=== PATIENT | male | born 1940 | race Asian ===

== ENCOUNTER 2024-11-23 13:07 | Emergency (ER) | payer MEDICAID, SELFPAY ==
[2024-11-23 13:32] VITALS: BP 129/78; PULSE 70; RESP 18; TEMP 36.9; O2SAT 97
--- NOTE | 2024-11-23 13:55 | XR_ITS ---
Examination: CT lumbar spine, without contrast. 2-D sagittal reconstructions. 2-D coronal reconstructions. 3-D reconstructions. Date and time of exam:November 23, 2024 1434 hours INDICATIONS: Onset lower back pain today CTDI: vol (mGy):18.8 DLP: (mGycm):638 Technique: Multiple 1.25 mm axial sections of the lumbar spine without intravenous contrast have been obtained. 2-D sagittal and coronal reconstructions have been obtained. 3-D reconstructions have been obtained. Low dose protocols were performed. One or more of the following dose reduction techniques were used; automated exposure control, adjustment of the mA and/or KV according to patient size, use of iterative reconstruction technique. Findings: Severe osteopenia Advanced disc narrowing L4-L5 Acute comminuted burst type fractures L4 vertebral body Fractures include the pedicles of this vertebral body making this an unstable fracture, axial image 116 Reduction in height 30% Minimal retropulsion of the posterior superior margin of this vertebral body 2 mm No spondylolisthesis Paraspinal soft tissue prominence at the L4 level IMPRESSION: Severe comminuted burst fracture L4 vertebral body Fractures involve the pedicles of this vertebral body bilaterally making this an unstable fracture
--- NOTE | 2024-11-23 13:56 | EDNOTE_ITS ---
ED General RME/HPI General Chief complaint: General Adult/Misc Complain Stated complaint: SENT BY PCP FOR MRI Time Seen by Provider: 11/23/24 13:37 Arrival date/time: 11/23/24 13:07 , Ambulatory, unaided, walking normal ambulatory with no assist, RME / HPI RME / HPI narrative: 84-year-old male patient with significant history of congestive heart failure, had a pacemaker, was sent to us by PCP asking for MRI of the lumbar spine. Apparently patient is very active, ambulatory, prior to the incident. Patient sustained [id number] fall about 3 weeks ago ago since then has been having severe low back pain. He is unable to ambulate due to weakness to bilateral lower extremity and pain. Patient was seen by PCP and was referred to us for MRI. Initially given oxycodone however patient took only 1 tablet due to adverse effect. Patient denies any chest pain abdominal pain urinary incontinence bladder incontinence bowel incontinence, saddle anesthesia. Denies any fever denies any other complaints. Related Data Allergies Allergy/AdvReac Type Severity Reaction Status Date / Time No Known Drug Allergies Allergy Verified 11/23/24 13:11 Review of Systems Review of Systems Narrative Review of Systems: Review of system reviewed and within normal limits except mentioned in HPI ED Exam Narrative Physical exam: VITAL SIGNS: Reviewed. GENERAL APPEARANCE: Alert and interactive, follows commands, no acute distress, HEAD AND FACE: Non-traumatic. ENT: PERRL, pink conjunctivitis, eyelid no trauma, Mucous membrane moist. NECK: Supple, nontender, no nuchal rigidity. CHEST:+ Pacemaker, no tenderness, no crepitus, no paradoxical movement, no retractions. LUNGS: Clear, well ventilated, symmetric, no rales, no wheezing, no ronchi, no stridor, good breath sounds bilaterally. HEART: Regular rate, regular rhythm, no murmur, no gallops. ABDOMEN: Soft, positive bowel sounds, nondistended, no guarding, nontender, no rebound, no masses, RECTAL: Deferred. GENITAL: Deferred. NEUROLOGICAL: Gross motor function intact sensory function intact, however I notice slight weakness 4 out of 5 bilateral lower extremities, MUSCULOSKELETAL: low back tenderness, full range of motion. EXTREMITIES: Nontender, full range of motion. SKIN: Color pink, dry, no rash, no lacerations, no abrasions, no contusions. LYMPHATICS: Deferred. Course Quality Measures none Orders Category Date Time Status EKG (ED ONLY) *Do not use* NOW Care 11/23/24 15:34 Completed Referral - Bar Host/Hostess Stat Cons 11/23/24 16:[address] lumbar spine wo con Stat Exams 11/23/24 13:55 Completed EKG (ED Only) Stat Exams 11/23/24 15:34 Draft XR chest 1V Stat Exams 11/23/24 15:33 Completed CBC [CBC] Stat Lab 11/23/24 16:00 Completed CMP [Comprehensive Metabolic Panel] Stat Lab 11/23/24 16:00 Completed PTT [Partial Thromboplastin Time] Stat Lab 11/23/24 16:00 Completed Vital Signs Vital signs: Vital Signs Temperature 98.5 F 11/23/24 13:32 Pulse Rate 70 11/23/24 13:32 Respiratory Rate 18 11/23/24 13:32 Blood Pressure 129/78 11/23/24 13:32 Pulse Oximetry (%) 97 11/23/24 13:32 Oxygen Delivery Method Room Air 11/23/24 13:32 MDM Patient data External records reviewed:: None Clinical information provided by:: patient and family Social determinants that could affect healthcare access:: none Patient has the following chronic illnesses:: Congestive heart failure, hypertension, pacemaker How is presenting disease/condition affected by chronic disease/condition?: u neffected by Evaluation data The following diagnostics were reviewed and interpreted by me:: lab results, radiology exam(s) and EKG tracing(s) Lab and/or radiology exams considered but not ordered:: None Interpretation Summary: EKG showed paced rhythm, ventricular rate of 67 bpm, no ST segment elevation or depression noted. The rest of the lab see MDM Medications Medications considered but not ordered:: None Medication administrations:: None Consultations Consultation(s) initiated? (list below): No Diagnosis Differential Diagnosis ED Complaint MDM: Burst fracture L4, severe back pain, status post fall Most likely diagnosis given after review of the tests above:: Burst fracture L4, unstable Admission Indicated Admission indicated?: indicated Explain why admission is indicated or not indicated:: Transferred to [facility] Admission Request Was there a request for admission?: No Disposition Plan Disposition Plan: Transfer Medical Decision Making MDM Narrative MDM Narrative: 84-year-old male patient with significant history of congestive heart failure, had a pacemaker, was sent to us by PCP asking for MRI of the lumbar spine. Apparently patient is very active, ambulatory, prior to the incident. Patient sustained [id number] fall about 3 weeks ago ago since then has been having severe low back pain. He is unable to ambulate due to weakness to bilateral lower extremity and pain. Patient was seen by PCP and was referred to us for MRI. Initially given oxycodone however patient took only 1 tablet due to adverse effect. Patient denies any chest pain abdominal pain urinary incontinence bladder incontinence bowel incontinence, saddle anesthesia. Denies any fever denies any other complaints. CT scan of the lumbar spine showed Severe osteopenia Advanced disc narrowing L4-L5 Acute comminuted burst type fractures L4 vertebral body Fractures include the pedicles of this vertebral body making this an unstable fracture, axial image 116 Reduction in height 30% Minimal retropulsion of the posterior superior margin of this vertebral body 2 mm No spondylolisthesis Paraspinal soft tissue prominence at the L4 level IMPRESSION: Severe comminuted burst fracture L4 vertebral body Fractures involve the pedicles of this vertebral body bilaterally making this an unstable fracture Patient is to be transferred for higher level of care. There is spine/neurosurgeon available. I was able to spoke with neurosurgeon from [facility], who accepted the transfer. Differential Diagnosis Differential Diagnosis: Burst fracture L4, severe back pain, status post fall Lab Data 11/23/24 16:00 11/23/24 16:00 Labs: Lab Results 11/23/24 Range/Units 16:00 WBC 6.2 (3.8-10.6) Thou/mm3 RBC 3.54 L (4.50-5.90) Miln/mm3 Hgb 11.3 L (13.5-16.0) g/dL Hct 33.5 L (41.0-53.0) % MCV 95 (80-100) fL MCH 31.9 (25.0-35.0) pg MCHC 33.7 (31.0-37.0) g/dl RDW Std Deviation 67.7 H (35.1-43.9) fL Plt Count 162 (140-440) Thou/mm3 Neut % (Auto) 62 (37-80) % Lymph % (Auto) 20 (10-50) % Sioux % (Auto) 11 (0-12) % Eos % (Auto) 6 (0-10) % Baso % (Auto) 1 (0-2.5) % Neut # (Auto) 3.9 (1.8-7.7) Thou/mm3 Lymph # (Auto) 1.3 (1.0-4.8) Thou/mm3 Sioux # (Auto) 0.7 (0.0-0.8) Thou/mm3 Eos # (Auto) 0.3 (0.0-0.5) Thou/mm3 Baso # (Auto) 0.1 (0.0-0.2) Thou/mm3 Immature Gran # (Auto) 0.02 H (0.00-0.00) Thou/mm3 Absolute Nucleated RBC 0.00 (0.00-0.00) Thou/mm3 Immature Gran % 0 (0-0) % Nucleated RBC % 0 (0) /100 WBC APTT 36.8 H (22.0-36.0) Seconds Sodium 136 (136-145) mMol/L Potassium 3.7 (3.4-5.1) mMol/L Chloride 95 L (98-107) mMol/L Carbon Dioxide 31.9 H (20.0-31.0) mMol/L Anion Gap 9 (7-16) BUN 50 H (9-23) mg/dL Creatinine 2.1 H (0.6-1.3) mg/dL Estim Creat Clear Calc 24.4 L (>60) mL/min eGFR 30 L (60 - ) See Note BUN/Creatinine Ratio 24 H (12-20) Ratio Glucose 123 H (74-106) mg/dL Calculated Osmolality 286 (275-295) Calcium 9.5 (8.3-10.6) mg/dL Corrected Calcium 9.7 (8.5-10.1) mg/dL Total Bilirubin 0.8 (0.3-1.2) mg/dL AST 13 (0-34) U/L ALT < 7 L (10-49) U/L Alkaline Phosphatase 165 H (46-116) U/L Total Protein 7.4 (5.7-8.2) gm/dL Albumin 3.7 (3.4-4.8) gm/dL Globulin 3.7 H (2.3-3.5) gm/dL Albumin/Globulin Ratio 1.0 L (1.2-2.2) Discharge Plan Plan Patient Disposition: Xfer Acute Care Fac Facility Pt Being Transferred to: [facility] Prescriptions/Referrals Referrals: Enoch Leigh MD [Primary Care Provider] - In 1 week Problem List Clinical Impression: Closed L4 vertebral fracture, Fall Patient/Caregiver Discharge Instructions Print Language: Kyrgyz Stand Alone Forms: [facility] Award Info., Patient Portal Info Letter
--- NOTE | 2024-11-23 15:33 | XR_ITS ---
Examination: AP chest single view Technique one AP portable upright chest single view Exam date and time: November 23, 2024 1540 hours INDICATIONS: Chest pain today. FINDINGS: Abnormal interstitial disease throughout the lungs Mild prominence left ventricle Partial visualization ventricular cardiac lead Moderate vascular congestion IMPRESSION: Abnormal interstitial disease throughout the lungs, differential would include pneumonia, pulmonary fibrosis, clinical correlation advised Moderate vascular congestion
--- NOTE | 2024-11-23 15:34 | EKG_ITS ---
[facility] Test Date: 2024-11-23 Pat Name: TAYA CARRINGTON Department: Room: - Gender: Male Claims Adjudicator: : 1940 Requested By: Enio Galvez Order Number: [id number] Reading MD: Enio Galvez Measurements Intervals Wirtz Rate: 67 P: 131 RI: 103 QRS: 240 QRSD: 64 T: 92 QT: 249 QTc: 264 Interpretive Statements ELECTRONIC ATRIAL PACEMAKER RIGHT AXIS DEVIATION [QRS AXIS > 100] LOW QRS VOLTAGE [QRS DEFLECTION < 0.5/1.0 mV IN LIMB/CHEST LEADS] ANTERIOR MYOCARDIAL INFARCTION , POSSIBLY ACUTE [40+ ms Q WAVE AND/OR ST/T ABNORMALITY IN V3/V4] MARKED ST ELEVATION, CONSIDER LATERAL INJURY [MARKED ST ELEVATION W/O NORMALLY INFLECTED T-WAVE IN I/aVL/V5/V6] MARKED ST ELEVATION, CONSIDER INFERIOR INJURY [MARKED ST ELEVATION W/O NORMALLY INFLECTED T-WAVE IN II/aVF] TYPE 3 BRUGADA PATTERN (NON-DIAGNOSTIC) [COVED/SADDLEBACK ST ELEVATION > 0.1mV IN 2 OF V1-3] ACUTE ND No previous ECG available for comparison /store/S0/[id number]/ecg/[id number].pdf
--- NOTE | 2024-11-23 16:28 | PC.CC ---
Addendum entered by Christiano Simpson RN 11/23/24 19:35: 1925 sent paperwork to [facility] through [employer]. Called [facility], spoke to Gian and set up the transport. The fiber picker time is 2100. Addendum entered by Christiano Simpson RN 11/23/24 19:27: 1920 transfer packet is complete with CD inside including all signatures. Transfer packet given to charge nurse and number to call for report is on tracker. Addendum entered by Christiano Simpson RN 11/23/24 18:44: 1840 spoke to Tamara at [facility]. She stated pt is accepted for ED to ED transfer by Dr. Ornelas [facility] Trauma surgeon. Call report at [phone]. Addendum entered by Christiano Simpson RN 11/23/24 18:39: 1829 received call from Tamara at [facility] that she has her neurosurgery PA on the the line for peer to peer with Enio. Conference call connected. Addendum entered by Christiano Simpson RN 11/23/24 17:37: 1733 called [facility], spoke to Tamara and initiated the transfer. Tamara wants to speak to [facility]. Call transferred. Addendum entered by Christiano Simpson RN 11/23/24 17:25: 1724 images pushed over to [facility] via synapse. Original Note: 1720 clinicals sent to [facility]. due to working on inpatient transfer, unable to work right away. 1628 received call from [facility] that pt needs to be transferred for severe comminuted burst fracture L4 needs neuro-surgical or supine surgery services.
[2024-11-23 16:29] LABS: Basophils # (Auto) 0.1 Thou/mm3 (0.0-0.2); Basophils % (Auto) 1 % (0-2.5); Eosinophils # (Auto) 0.3 Thou/mm3 (0.0-0.5); Eosinophils % (Auto) 6 % (0-10); Hematocrit 33.5 % (41.0-53.0); Hemoglobin 11.3 g/dL (13.5-16.0); Immature Granulocytes % (Auto) 0 % (0-0); Immature Granulocytes Auto 0.02 Thou/mm3 (0.00-0.00); Lymphocytes # (Auto) 1.3 Thou/mm3 (1.0-4.8); Lymphocytes % (Auto) 20 % (10-50); Mean Corpuscular HGB Conc 33.7 g/dl (31.0-37.0); Mean Corpuscular Hemoglobin 31.9 pg (25.0-35.0); Mean Corpuscular Volume 95 fL (80-100); Monocytes # (Auto) 0.7 Thou/mm3 (0.0-0.8); Monocytes % (Auto) 11 % (0-12); Neutrophils # (Auto) 3.9 Thou/mm3 (1.8-7.7); Neutrophils % (Auto) 62 % (37-80); Nucleated Red Blood Cell % 0 /100 WBC (0); Platelet Count 162 Thou/mm3 (140-440); RDW Standard Deviation 67.7 fL (35.1-43.9); Red Blood Count 3.54 Miln/mm3 (4.50-5.90); White Blood Count 6.2 Thou/mm3 (3.8-10.6)
[2024-11-23 16:36] LABS: Partial Thromboplastin Time 36.8 Seconds (22.0-36.0)
[2024-11-23 16:51] LABS: Alanine Aminotransferase < 7 U/L (10-49); Albumin, Serum 3.7 gm/dL (3.4-4.8); Alkaline Phosphatase 165 U/L (46-116); Anion Gap 9 (7-16); Aspartate Amino Transferase 13 U/L (0-34); BUN/Creatinine Ratio 24 Ratio (12-20); Bilirubin,Total 0.8 mg/dL (0.3-1.2); Blood Urea Nitrogen 50 mg/dL (9-23); Calcium 9.5 mg/dL (8.3-10.6); Calcium (Corrected) 9.7 mg/dL (8.5-10.1); Carbon Dioxide 31.9 mMol/L (20.0-31.0); Chloride 95 mMol/L (98-107); Creatinine (Component) 2.1 mg/dL (0.6-1.3); Estimated Creatinine Clearance 24.4 mL/min (>60); Globulin 3.7 gm/dL (2.3-3.5); Glucose 123 mg/dL (74-106); Osmolality,Calculated 286 (275-295); Potassium 3.7 mMol/L (3.4-5.1); Sodium 136 mMol/L (136-145); Total Protein 7.4 gm/dL (5.7-8.2); eGFR 30 See Note
[2024-11-23 17:52] VITALS: BP 124/80; PULSE 67; RESP 18; TEMP 36.8; O2SAT 96
[2024-11-23 19:54] VITALS: BP 141/84; PULSE 73; RESP 18; TEMP 36.4; O2SAT 100
--- NOTE | 2024-11-23 20:31 | PC.NURSE ---
REPORT CALLED TO SONU LEON AT [facility] AT THIS TIME.
== END 2024-11-23 20:39 | disposition short-term general hospital (02) ==
PROVIDERS: Nurse Practitioner Family; Emergency Provider Emergency Medicine; PCP Family Medicine
DX: S32.041A Stable burst fracture of fourth lumbar vertebra, initial encounter for closed fracture (principal); W19.XXXA Unspecified fall, initial encounter; R07.9 Chest pain, unspecified; R94.31 Abnormal electrocardiogram [ECG] [EKG]; I11.0 Hypertensive heart disease with heart failure; I50.9 Heart failure, unspecified; Z95.0 Presence of cardiac pacemaker; Z75.1 Person awaiting admission to adequate facility elsewhere
CPT/HCPCS: 36415; 71045; 72131; 80053; 85025; 85730; 93005; 99285

== ENCOUNTER 2024-12-22 07:56 | Inpatient (IN) | payer MEDICAID, SELFPAY ==
[2024-12-22] VITALS (8 sets, daily range): BP systolic 95–121; BP diastolic 45–78; PULSE 61–82; RESP 16–97; TEMP 36.4–36.7; O2SAT 92–96; BMI 23.6
--- NOTE | 2024-12-22 08:15 | PD.EDADULT ---
ED General RME/HPI General Chief complaint: Neuro Symptoms/Deficit Stated complaint: FACIAL DROOP Time Seen by Provider: 12/22/24 08:19 Arrival date/time: 12/22/24 07:56 RME / HPI RME / HPI narrative: 84 year old male with history of CHF, atrial fibrillation, s/p pacemaker, hypertension, diabetes, hyperlipidemia, hypothyroidism, recent stable L4 burst fracture with surgery performed at [facility] on 12/05/2024, presents to the ED BIBA from [facility] for evaluation of facial droop today. Per medics, OR staff reported patient was just admitted to their facility 2 weeks ago and noted to have a facial droop then. However this morning was worse which concerned them. Prehospital BS 162, blood pressure 125/75, HR 85. While in the ED patient has no complaints and states nothing is going on I'm fine . Denies fever, chills, sweating. Denies chest pain, cough, shortness of breath. Denies nausea, vomiting, diarrhea, constipation. Denies dysuria, urinary frequency and urgency. 1110: I spoke with the patient's son at the bedside. He reported receiving a call from the [facility] early this morning, notifying him that the patient was shuffling in bed and found sitting upright on the floor next to the bed. The fall was unwitnessed and unknown if there was head injury. The son explained that the patient had been transferred from here to [facility] on 11/23/2024 due to a burst L4 vertebral fracture. Following back surgery on 11/29/2024, the patient began complaining of severe shortness of breath. The nursing staff placed him on oxygen, but there was no improvement, and the patient subsequently collapsed. He went into cardiac arrest, and CPR was performed. Additionally, the son mentioned that since the surgery, the patient has developed a mild left sided facial droop, which he did not have prior to the surgery . Denies stroke work-up during his time at [facility]. Related Data Allergies Allergy/AdvReac Type Severity Reaction Status Date / Time No Known Drug Allergies Allergy Verified 12/22/24 08:19 Review of Systems Review of Systems Narrative Review of Systems: GEN: No fever, no chills, no weight loss EYES: No discharge, no visual changes, no pain HEENT: No ear pain, no congestion, no sore throat PULM: No shortness of breath, no cough, no congestion CV: No chest pain, no dyspnea on exertion, no palpitations GI: No nausea, no vomiting, no diarrhea, no pain, no constipation : No frequency, no urgency, no dysuria MUSC/SKEL: No joint pain, no back pain SKIN: No rash PSYCH: No hallucinations, no depression HEME/LYMPH: No easy bleeding or bruising tendencies NEURO: No weakness, no headache, +left facial droop Past Medical History Past Medical History NEUROLOGIC: Positive Cerebrovascular Accident CARDIAC: Positive Myocardial Infarction, Atrial Fibrillation, Heart Murmur, Congestive Heart Failure and Hypertension RESPIRATORY: Negative Chronic Obstructive Pulmonary Disease (COPD) GENITOURINARY: Positive Renal Disease ENDOCRINE: Positive Diabetes Mellitus Type 2; Negative Diabetes Mellitus Type 1 OTHER HISTORY: Positive Falls Surgical History SURGICAL: Positive Cardiac Surgery and Pacemaker Social History SMOKING STATUS: Unknown if ever smoked ED Exam Narrative Physical exam: GENERAL APPEARANCE: alert and oriented x 4, well-developed, well-nourished, no acute distress HEENT: Normocephalic, atraumatic; pupils equal, round, reactive to light; EOMI; mucous membranes pink, moist; oropharynx clear NECK: Supple LUNGS: CTABL; no wheezes, no rales, no rhonchi HEART: Regular rate, regular rhythm; normal S1, S2; no murmurs ABDOMEN: non distended; normal BS; soft, no tenderness, no guarding, no rebound; no masses, no organomegaly, no hernia BACK: no CVA tenderness EXTREMITIES: atraumatic; no edema NEUROLOGIC: awake; alert and oriented x4; left facial droop, strength 5/5 bilateral upper extremities; no focal sensory or motor deficits PSYCHIATRIC: appropriate mood and affect SKIN: warm, dry, normal color; no rashes Course Quality Measures none Orders Category Date Time 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 12/22/24 08:21 Active EKG (ED ONLY) *Do not use* NOW Care 12/22/24 08:[address] cervical spine wo con Stat Exams 12/22/24 08:[address] head/brain wo con Stat Exams 12/22/24 08:21 Completed EKG (ED Only) Stat Exams 12/22/24 08:21 Draft US abdomen limited Stat Exams 12/22/24 11:23 Completed XR chest 1V portable Stat Exams 12/22/24 10:42 Completed XR lumbar spine 2-3V Stat Exams 12/22/24 11:17 Completed B-Type Natriuretic Peptide Stat Lab 12/22/24 08:50 Completed CBC Stat Lab 12/22/24 08:50 Completed CMP [Comprehensive Metabolic Panel] Stat Lab 12/22/24 15:01 Completed Comprehensive Metabolic Panel Stat Lab 12/22/24 08:50 Completed Lipase Stat Lab 12/22/24 08:50 Completed Magnesium Stat Lab 12/22/24 08:50 Completed Partial Thromboplastin Time Stat Lab 12/22/24 08:50 Completed Prothrombin Time with INR Stat Lab 12/22/24 08:50 Completed Troponin I Stat Lab 12/22/24 08:50 Completed Troponin I Stat Lab 12/22/24 12:00 Completed UA, C/S IF [Urinalysis, C/S if Indicated] Stat Lab 12/22/24 15:33 Completed Sodium Chloride 0.9% 1000 ml [Ns] 1,000 ml Med 12/22/24 10:44 Discontinued IV 999 mls/hr Vital Signs Vital signs: Vital Signs Temperature 97.9 F 12/22/24 08:00 Pulse Rate 82 12/22/24 08:00 Respiratory Rate 18 12/22/24 08:00 Blood Pressure 117/72 12/22/24 08:00 Pulse Oximetry (%) 92 L 12/22/24 08:00 Oxygen Delivery Method Nasal Cannula 12/22/24 08:00 Oxygen Flow Rate 6 12/22/24 08:00 Discharge Plan Plan Patient Disposition: Admit Acute Care w/in Hospital Problem List Clinical Impression: Dehydration, Elevated troponin, Transaminitis, Facial droop MDM Patient Acuity High Acuity (complete MDM) Narrative: Lilliam Perez am scribing for and in the presence of Dr. Buck. Clinical Information Provided by: patient, EMS and family (Son adds to hpi) Medical Records reviewed [facility] (I reviewed ED visit on 11/23/2024 where he was transferred to [facility] ) and [facility] (I reviewed PMHX and medication list from [facility] ) Meds/Rx considered, not ordered None Labs/Rad/Tests considered, not ordered None Chronic Illness/Social Conditions which may negatively complicate care or outcome(s)-explain: None or not applicable EKG EKG Interpretation(s): EKG @ 08:45 am. Interpreted by me shows ventricular paced, rate 73. Labs Labs: Interpreted by me Lab(s) Interpretation(s): H/H 9.5/29.2 Troponin 0.156 BNP > 3280 Imaging Imaging interpretation: Interpreted by me Imaging Interpretation(s): Ordering Physician: Evi Buck MD Date of Service: 12/22/24 Procedure(s): CT head/brain wo con Accession Number(s): [id number] cc: Tim Holloway MD; NO PRIMARY/FAMILY,PHYSICIAN; Evi Buck MD~ Examination: CT brain head without contrast. 2-D sagittal coronal reconstructions Exam date and time: December 22, 2024 0834 hours INDICATIONS: Onset right-sided facial droop today with fall CTDI: vol (mGy):52.3 DLP: (mGycm):1036 Technique: Multiple CT axial sections of the brain have been obtained, 5 mm slice thickness. Contrast has not been administered. 2-D sagittal, coronal reconstructions have been obtained Low dose protocols were performed. One or more of the following dose reduction techniques were used; automated exposure control, adjustment of the mA and/or KV according to patient size, use of iterative reconstruction technique. Findings: Mild ventricular enlargement. Intra-axial or extra-axial hemorrhage density is not seen. No mass effect or midline shift Basal cisterns are not remarkable. Fourth ventricle is midline. Cranial vault intact. Impression: Negative for acute hemorrhage, mass effect or midline shift Advise clinical correlation follow-up accordingly Dictated By:Tim Holloway MD Signed By:<Electronically signed by Tim Holloway MD in OV>12/22/24 0942 Ordering Physician: Evi Buck MD Date of Service: 12/22/24 Procedure(s): CT cervical spine wo con Accession Number(s): [id number] cc: Tim Holloway MD; NO PRIMARY/FAMILY,PHYSICIAN; Evi Buck MD~ Examination: CT cervical spine without contrast 2-D sagittal reconstructions 2-D coronal reconstructions 3-D reconstructions. Exam date and time:December 22, 2024 0834 hours INDICATIONS: Ground-level fall this morning with injury to the neck, neck pain CTDI:vol (mGy) 8.42 DLP: (mGycm) 183 Technique: Multiple 2 mm axial sections of the cervical spine have been obtained. The coronal and sagittal reconstructions have been obtained. 3-D reconstructions have been obtained. Low dose protocols were performed. One or more of the following dose reduction techniques were used; automated exposure control, adjustment of the mA and/or KV according to patient size, use of iterative reconstruction technique. Findings: Axial sections demonstrate intact base of the skull. C1 exhibit satisfactory relationship to the odontoid. No acute cervical vertebral body fracture seen. Alignment posterior spinous processes satisfactory. Impression: The images are degraded by patient motion No cervical fracture depicted Dictated By:Tim Holloway MD Signed By:<Electronically signed by Tim Holloway MD in OV>12/22/24 0937 Ordering Physician: Evi Buck MD Date of Service: 12/22/24 Procedure(s): XR chest 1V portable Accession Number(s): [id number] cc: Tim Holloway MD; NO PRIMARY/FAMILY,PHYSICIAN; Evi Buck MD~ Examination: AP chest single view Technique one AP portable upright chest single view Exam date and time: December 22, 2024 1115 hours Comparison November 23, 2024 INDICATIONS: Chest pain shortness of breath beginning 2 days ago. FINDINGS: Mild heart failure Mild enlargement cardiac contour with prominent vascular congestion and early septal edema Consider superimposed pneumonia left upper lobe Cardiac leads satisfactory position IMPRESSION: Mild heart failure Suspicious for early pneumonia left upper lobe Dictated By:Tim Holloway MD Signed By:<Electronically signed by Tim Holloway MD in OV>12/22/24 1138 Ordering Physician: Evi Buck MD Date of Service: 12/22/24 Procedure(s): US abdomen limited Accession Number(s): [id number] cc: Tim Holloway MD; NO PRIMARY/FAMILY,PHYSICIAN; Evi Buck MD~ Examination: Abdomen sonogram, Limited Date and time of exam: December 22, 2024 11:43 AM INDICATIONS: Elevated liver function tests on laboratory examination today Technique: Real-time velazquez scale transabdominal sonographic images of the upper abdomen obtained. Findings: 16 mm gallstone Gallbladder wall 0.37 cm with trace pericholecystic fluid Common bile duct 0.4 cm Pancreatic head 2.8 cm Liver 13.7 cm irregular contour fatty infiltration Mild ascites Normal hepatopedal portal venous flow Patent IVC IMPRESSION: Cholelithiasis Suspicious for acute cholecystitis Consider MRCP follow-up Dictated By: Tim Holloway MD Signed By: <Electronically signed by Tim Holloway MD in OV> 12/22/24 1315 Ordering Physician: Evi Buck MD Date of Service: 12/22/24 Procedure(s): XR lumbar spine 2-3V Accession Number(s): [id number] cc: Tim Holloway MD; NO PRIMARY/FAMILY,PHYSICIAN; Evi Buck MD~ Examination: Lumbar spine 3 views Technique one AP lateral coned lateral lower lumbar spine 3 views Exam date and time: December 22, 2024 1218 hours INDICATIONS: Patient fell 3 months ago with injury to lower back, lower back pain. FINDINGS: Severe osteopenia Lumbar dextroscoliosis 12 degrees Chronic osteoporotic compression L4 with kyphoplasty No acute lumbar fracture Moderate degenerative disc disease L4-L5 IMPRESSION: Severe osteopenia Chronic osteoporotic compression L4 with kyphoplasty No acute lumbar fracture Moderate degenerative disc disease L4-L5 Dictated By: Tim Holloway MD Signed By: <Electronically signed by Tim Holloway MD in OV> 12/22/24 1339 Medication Administration(s) Medication Administration History Acetaminophen (Acetaminophen 325 Mg Tablet) 650 mg PO Q6H PRN PRN Reason: Fever >101.5 Stop: 01/21/25 14:22 Heparin Sodium (Porcine) (Heparin Sod Inj 5000 Unit/Ml Vial) 5,000 unit SC Q8HR HAYES Stop: 01/05/25 21:59 Ondansetron HCl (Ondansetron Inj 2 Mg/Ml Inj 2 Ml) 4 mg IV Q6H PRN; Protocol PRN Reason: NAUSEA OR VOMITING Stop: 01/21/25 14:22 Sennosides (Senna Tablet) 1 tab PO QDAY HAYES; Protocol Stop: 01/22/25 08:59 Discontinued Medications Sodium Chloride (Ns) 1,000 mls @ 999 mls/hr IV .Q1H1M ONE Stop: 12/22/24 11:44 Last Infusion: 12/22/24 15:47 Dose: Infused Documented By: Admin: 12/22/24 12:51 Dose: 999 mls/hr Documented By: RAFA Sodium Chloride (Ns) 250 mls @ 999 mls/hr IV .Q16M ONE Stop: 12/22/24 14:38 See above Consultations/Discussions re: Management Consult #1: Date/time: 12/22/24 12:10 pm Physician, specialty, service, details: I spoke with resident Dr. Foley working with Dr. Suarez regarding admission. Discussed patients PMHx, HPI, ED course, exam findings, labs, and radiology results. States she will discuss case with her attending. Diagnosis Diagnoses ruled out: Dehydration Elevated troponin Right facial droop Transaminitis
--- NOTE | 2024-12-22 08:21 | EKG_ITS ---
[facility] Test Date: 2024-12-22 Pat Name: TAYA CARRINGTON Department: Room: - Gender: Male Capacity Planner: : [id number] Requested By: Evi Graf Order Number: [id number] Reading MD: Evi Graf Measurements Intervals [place] Rate: 73 P: VA: QRS: 270 QRSD: 207 T: 91 QT: 540 QTc: 596 Interpretive Statements ELECTRONIC VENTRICULAR PACEMAKER PROLONGED QT INTERVAL CRITICAL TEST RESULT Compared to ECG 11/23/2024 15:50:10 Prolonged QT interval now present Atrial-paced complex(es) or rhythm no longer present Right-axis deviation no longer present Myocardial infarct finding no longer present ST (T wave) deviation no longer present /store/S0/[id number]/ecg/[id number].pdf
--- NOTE | 2024-12-22 08:21 | XR_ITS ---
Examination: CT brain head without contrast. 2-D sagittal coronal reconstructions Exam date and time: December 22, 2024 0834 hours INDICATIONS: Onset right-sided facial droop today with fall CTDI: vol (mGy):52.3 DLP: (mGycm):1036 Technique: Multiple CT axial sections of the brain have been obtained, 5 mm slice thickness. Contrast has not been administered. 2-D sagittal, coronal reconstructions have been obtained Low dose protocols were performed. One or more of the following dose reduction techniques were used; automated exposure control, adjustment of the mA and/or KV according to patient size, use of iterative reconstruction technique. Findings: Mild ventricular enlargement. Intra-axial or extra-axial hemorrhage density is not seen. No mass effect or midline shift Basal cisterns are not remarkable. Fourth ventricle is midline. Cranial vault intact. Impression: Negative for acute hemorrhage, mass effect or midline shift Advise clinical correlation follow-up accordingly
--- NOTE | 2024-12-22 08:22 | XR_ITS ---
Examination: CT cervical spine without contrast 2-D sagittal reconstructions 2-D coronal reconstructions 3-D reconstructions. Exam date and time:December 22, 2024 0834 hours INDICATIONS: Ground-level fall this morning with injury to the neck, neck pain CTDI:vol (mGy) 8.42 DLP: (mGycm) 183 Technique: Multiple 2 mm axial sections of the cervical spine have been obtained. The coronal and sagittal reconstructions have been obtained. 3-D reconstructions have been obtained. Low dose protocols were performed. One or more of the following dose reduction techniques were used; automated exposure control, adjustment of the mA and/or KV according to patient size, use of iterative reconstruction technique. Findings: Axial sections demonstrate intact base of the skull. C1 exhibit satisfactory relationship to the odontoid. No acute cervical vertebral body fracture seen. Alignment posterior spinous processes satisfactory. Impression: The images are degraded by patient motion No cervical fracture depicted
[2024-12-22 09:03] LABS: Basophils % (Auto) 0 % (0-2.5); Eosinophils % (Auto) 0 % (0-10); Hematocrit 29.2 % (41.0-53.0); Hemoglobin 9.5 g/dL (13.5-16.0); Immature Granulocytes % (Auto) 1 % (0-0); Lymphocytes # (Auto) 0.9 Thou/mm3 (1.0-4.8); Lymphocytes % (Auto) 12 % (10-50); Mean Corpuscular HGB Conc 32.5 g/dl (31.0-37.0); Mean Corpuscular Hemoglobin 30.5 pg (25.0-35.0); Mean Corpuscular Volume 94 fL (80-100); Monocytes # (Auto) 1.2 Thou/mm3 (0.0-0.8); Monocytes % (Auto) 15 % (0-12); Neutrophils # (Auto) 5.5 Thou/mm3 (1.8-7.7); Neutrophils % (Auto) 71 % (37-80); Nucleated Red Blood Cell # 0.02 Thou/mm3 (0.00-0.00); Nucleated Red Blood Cell % 0 /100 WBC (0); Platelet Count 246 Thou/mm3 (140-440); Red Blood Count 3.11 Miln/mm3 (4.50-5.90); White Blood Count 7.7 Thou/mm3 (3.8-10.6)
[2024-12-22 09:20] LABS: INR 1.6 (0.9-1.3); Partial Thromboplastin Time 37.3 Seconds (22.0-36.0); Prothrombin Time 16.9 Seconds (9.0-12.2)
[2024-12-22 09:43] LABS: B-Type Natriuretic Peptide > 3280 pg/mL (0-100)
[2024-12-22 09:44] LABS: Alanine Aminotransferase 128 U/L (10-49); Albumin, Serum 3.7 gm/dL (3.4-4.8); Alkaline Phosphatase 228 U/L (46-116); Anion Gap 10 (7-16); Aspartate Amino Transferase 76 U/L (0-34); BUN/Creatinine Ratio 38 Ratio (12-20); Bilirubin,Total 1.8 mg/dL (0.3-1.2); Calcium 9.1 mg/dL (8.3-10.6); Calcium (Corrected) 9.3 mg/dL (8.5-10.1); Carbon Dioxide 31.4 mMol/L (20.0-31.0); Chloride 99 mMol/L (98-107); Creatinine (Component) 2.7 mg/dL (0.6-1.3); Globulin 3.7 gm/dL (2.3-3.5); Glucose 137 mg/dL (74-106); Lipase 50 U/L (12-53); Magnesium 2.1 mg/dL (1.6-2.6); Osmolality,Calculated 313 (275-295); Potassium 4.4 mMol/L (3.4-5.1); Sodium 140 mMol/L (136-145); Total Protein 7.4 gm/dL (5.7-8.2); eGFR 22 See Note
[2024-12-22 09:47] LABS: Blood Urea Nitrogen 103 mg/dL (9-23); Troponin I 0.156 ng/mL (0.0-0.045)
--- NOTE | 2024-12-22 10:42 | XR_ITS ---
Examination: AP chest single view Technique one AP portable upright chest single view Exam date and time: December 22, 2024 1115 hours Comparison November 23, 2024 INDICATIONS: Chest pain shortness of breath beginning 2 days ago. FINDINGS: Mild heart failure Mild enlargement cardiac contour with prominent vascular congestion and early septal edema Consider superimposed pneumonia left upper lobe Cardiac leads satisfactory position IMPRESSION: Mild heart failure Suspicious for early pneumonia left upper lobe
--- NOTE | 2024-12-22 11:17 | XR_ITS ---
Examination: Lumbar spine 3 views Technique one AP lateral coned lateral lower lumbar spine 3 views Exam date and time: December 22, 2024 1218 hours INDICATIONS: Patient fell 3 months ago with injury to lower back, lower back pain. FINDINGS: Severe osteopenia Lumbar dextroscoliosis 12 degrees Chronic osteoporotic compression L4 with kyphoplasty No acute lumbar fracture Moderate degenerative disc disease L4-L5 IMPRESSION: Severe osteopenia Chronic osteoporotic compression L4 with kyphoplasty No acute lumbar fracture Moderate degenerative disc disease L4-L5
--- NOTE | 2024-12-22 11:23 | XR_ITS ---
Examination: Abdomen sonogram, Limited Date and time of exam: December 22, 2024 11:43 AM INDICATIONS: Elevated liver function tests on laboratory examination today Technique: Real-time velazquez scale transabdominal sonographic images of the upper abdomen obtained. Findings: 16 mm gallstone Gallbladder wall 0.37 cm with trace pericholecystic fluid Common bile duct 0.4 cm Pancreatic head 2.8 cm Liver 13.7 cm irregular contour fatty infiltration Mild ascites Normal hepatopedal portal venous flow Patent IVC IMPRESSION: Cholelithiasis Suspicious for acute cholecystitis Consider MRCP follow-up
[2024-12-22] MEDS: SODIUM CHLORIDE 0.9% 1000 ML 1,000 ML 999 ML IV (12:51)
[2024-12-22 13:01] LABS: Troponin I 0.157 ng/mL (0.0-0.045)
--- NOTE | 2024-12-22 13:14 | PC.NURSE ---
RN updated Ya director of medical staff services at [facility] updated on plan of admission for this patient.
--- NOTE | 2024-12-22 15:24 | ESHP_ITS ---
<Statement entered by Dedra Suarez MD - 12/27/24 09:29> I reviewed above note and agree with findings and plans. I have also personally examined the patient with medicine team and went over assessment and plan with medical team including intern retail and resident physician. <Statement entered by Carson Sifuentes MD - 12/24/24 10:43> Patient coming in with some posterior left-sided facial droopiness, per son has been persistent for about 1 month. Patient being admitted for acute renal failure with noted elevation in creatinine and BUN. Will start fluid resuscitation. Case discussed with team. Carson Sifuentes MD PGY3 Documentation for date of: 12/22/24 HPI History of Present Illness History of present illness: Mr. Conley is An 84-year-old male with a past medical history significant for congestive heart failure (CHF), atrial fibrillation (A-fib), hypertension, type 2 diabetes mellitus, hypothyroidism, and a recent L4 vertebral fracture presented to the Emergency Department (ED) from a rehabilitation center after being found on the floor. According to the patient?s son, who is at the bedside, the nursing facility contacted him to report that the patient was being transferred to the hospital due to a noticeable facial droop. The patient is alert and oriented but is unable to recall the events leading up to being found on the floor. He denies sustaining a fall or injury and believes he may have been attempting to get out of bed, although he does not remember falling. He reports the possibility that he may have simply sat down. The patient denies any dizziness, visual disturbances, slurred speech, focal weakness, or facial droop. Pt's son states he wears dentures and has not been wearing them.He also denies chest pain, palpitations, pressure, or syncopal episodes. He reports no dysphagia, though he has experienced a decreased appetite, which he attributes to dissatisfaction with the food being served at the rehabilitation facility. The patient was recently discharged from [facility] to the rehab facility following surgery for an L4 fracture. Immediately after the surgery Pt had asytole and was resucicated, son states since then he has noticed his dad has become more withdrawn. Pt states he has been participating in physical therapy at the rehab center. He reports making good progress with ambulation and overall strength. He denies any abdominal pain, changes in bowel habits, diarrhea, constipation, hematochezia, or melena. ED course: In the ED blood pressure is 117/72, heart rate 82 patient saturating on room air Lab findings include hemoglobin 9.5, hematocrit 29.2, BUN 103, creatinine 2.7, GFR 22, glucose 137, calculated osmolality 313, total bilirubin 1.8, AST 76, ALT 128, troponins 0.156 -> 0.157, BNP >[address] of head: Negative for acute hemorrhage, mass effect or midline shift CT cervical spine: No cervical fracture detected X-ray of lumbar spine: Severe osteopenia, chronic osteoporotic compression L4 with kyphoplasty Chest x-ray: Mild heart failure, suspicious for early pneumonia left upper lobe Abdominal ultrasound: 6 mm gallstone EKG: Electronic ventricular pacemaker and prolonged QT interval with QT 540 PMH:congestive heart failure (CHF), atrial fibrillation (A-fib), hypertension, type 2 diabetes mellitus, hypothyroidism, and a recent L4 vertebral fracture PSH: back surgery and hernia repair surgery SH: denies tobacco, drugs and alcohol use Home Meds: Med recs pending Review of Systems Review of Systems Systems Reviewed: All systems reviewed, normal except as documented Exam Vital Signs Temp Pulse Resp BP Pulse Ox O2 Del Method O2 Flow Rate 97.9 F 72 18 117/72 92 L Nasal Cannula 6 12/22/24 08:00 12/22/24 08:45 12/22/24 08:00 12/22/24 08:00 12/22/24 08:00 12/22/24 08:00 12/22/24 08:00 Narrative Exam GENERAL: A&Ox3 . Awake, Not in acute distress NEURO: no focal neurological deficits HEENT: Atraumatic, Normocephalic. mucous membranes moist. Eyes open, symmetrical, & clear HEART: Normal Heart Sounds LUNGS: Clear to auscultation with no wheezing or crackles. ABDOMEN: soft, non-distended, non-tender, bowel sounds heard, no guarding or rebound tenderness SKIN: No Rash or ecchymoses EXTREMITIES: No edema, tenderness, able to move all 4 extremities, pedal pulses palpated Results: Labs 12/22/24 08:50 12/22/24 08:50 Labs: Short CBC 12/22/24 Range/Units 08:50 WBC 7.7 (3.8-10.6) Thou/mm3 Hgb 9.5 L (13.5-16.0) g/dL Hct 29.2 L (41.0-53.0) % Plt Count 246 D (140-440) Thou/mm3 BMP 12/22/24 08:50 Sodium 140 Potassium 4.4 Chloride 99 Carbon Dioxide 31.4 H BUN 103 H* Creatinine 2.7 H Glucose 137 H Calcium 9.1 Cardiac Enzymes 12/22/24 12/22/24 Range/Units 08:50 12:00 Troponin I 0.156 H* 0.157 H* (0.0-0.045) ng/mL Liver Function 12/22/24 Range/Units 08:50 Total Bilirubin 1.8 H (0.3-1.2) mg/dL AST 76 H (0-34) U/L ALT 128 H (10-49) U/L Alkaline Phosphatase 228 H (46-116) U/L Albumin 3.7 (3.4-4.8) gm/dL Quality Measures Quality Measures none Advance care planning discussed with:: patient and child Medications Home Medications and Allergies Allergies Allergy/AdvReac Type Severity Reaction Status Date / Time No Known Drug Allergies Allergy Verified 12/22/24 08:19 Visit Medications Acetaminophen (Acetaminophen 325 Mg Tablet) 650 mg PO Q6H PRN PRN Reason: Fever >101.5 Stop: 01/21/25 14:22 Heparin Sodium (Porcine) (Heparin Sod Inj 5000 Unit/Ml Vial) 5,000 unit SC Q8HR HAYES Stop: 01/05/25 21:59 Ondansetron HCl (Ondansetron Inj 2 Mg/Ml Inj 2 Ml) 4 mg IV Q6H PRN; Protocol PRN Reason: NAUSEA OR VOMITING Stop: 01/21/25 14:22 Sennosides (Senna Tablet) 1 tab PO QDAY HAYES; Protocol Stop: 01/22/25 08:59 Discontinued Medications Sodium Chloride (Ns) 1,000 mls @ 999 mls/hr IV .Q1H1M ONE Stop: 12/22/24 11:44 Last Admin: 12/22/24 12:51 Dose: 999 mls/hr Sodium Chloride (Ns) 250 mls @ 999 mls/hr IV .Q16M ONE Stop: 12/22/24 14:38 Assessment & Plan Plan Mr. Conley is An 84-year-old male with a past medical history significant for congestive heart failure (CHF), atrial fibrillation (A-fib), hypertension, type 2 diabetes mellitus, hypothyroidism, and a recent L4 vertebral fracture presented to the Emergency Department (ED) from a rehabilitation center after being found on the floor. Pt is admitted for management of dehydration and uremia. #Acute kidney injury #Elevated BUN 2/2 #Dehydration -Due to poor oral intake, Pt has had decreased appetite since back surgery earlier this month -Patient presented from a rehab facility, after being found on the floor. However patient denies any falls but cannot recall any events leading. Patient is not altered he is alert oriented to time place and is able to recognize his son at bedside. - On labs BUN is 103, creatinine 2.7, GFR 22, calculated osmolality 313 - Patient denies any chest pain, pressure or palpitations - In the ED patient received 1 L NS bolus -FUNMILAYO is likely due to prerenal secondary to dehydration. - Unable to compare previous labs but in October patient was in the ED with creatinine 2.1 and today 2.7, patient denies any history of kidney disease Plan: -Will continue aggressive hydration -Repeat CMP -And continue to monitor patient's labs and mentation -Avoid nephrotoxic and renally dose medications #Hyperbilirubinemia #Transaminitis -Total bilirubin on admission 1.8, AST 65, ALT 115 -Patient denies right upper quadrant tenderness or pain -Likely secondary to dehydration due to poor oral intake -Will continue to monitor daily labs #Elevated troponins likely 2/2 #NSTEMI type ll -Troponin 0.156 -> 0.157, likely demand ischemia in the setting of FUNMILAYO and recent surgery -Pt denies chest pain, pressure or palpitations -EKG does not show any acute ST or T wave changes #Normocytic Anemia -Hgb 9.5, Hct 29.2, MCV 94 -No signs of active bleeding, pt denies melena or hematochezia -Will continue to monitor daily CBC #History of A-fib #History of CHF -EKG in the ED shows ventricular paced, QTc of 540 -Patient denies any chest pain palpitations or pressure BNP > 3280 -Pt follows Dr. Albert in [place] outpatient Plan: -Pending med rec #Primary hypertension -On admission patient's blood pressure is soft, 117/72 -Will hold home antihypertensive medication for now and resume when able #Iap-cshgebd-milqjbihy type 2 diabetes -Will start patient on insulin sliding scale -Hypoglycemia protocol in place -ACHS ordered -A1c ordered for am labs #Hypothyroidism -resumed home levothyroixine 75mcg #History of L4 fracture s/p repair surgery -Earlier this month pt underwent L4 fracture repair surgery at [facility], and had been at the rehab center for PT #Cholelithiasis - Abdominal ultrasound shows a 16 mm gallstone - Patient denies any abdominal pain or tenderness in the right upper quadrant region - Patient will need to follow-up outpatient and surgical evaluation Health Maintenance Disposition: Telemetry DVT Prophylaxis: Heparin 5000 units SC Q8 hrs GI Prophylaxis: not indicated Diet: Dysphagia 2 diet Lines: Peripheral lines Code status: DNR/DNI Assessment and plan discussed with my senior resident Dr. Sifuentes & attending physician Dr. Erick Giraldo (PGY-1)- Internal medicine resident
[2024-12-22 15:44] LABS: Alanine Aminotransferase 115 U/L (10-49); Albumin, Serum 3.5 gm/dL (3.4-4.8); Alkaline Phosphatase 211 U/L (46-116); Anion Gap 10 (7-16); Aspartate Amino Transferase 65 U/L (0-34); BUN/Creatinine Ratio 40 Ratio (12-20); Bilirubin,Total 1.8 mg/dL (0.3-1.2); Blood Urea Nitrogen 100 mg/dL (9-23); Calcium 8.7 mg/dL (8.3-10.6); Calcium (Corrected) 9.1 mg/dL (8.5-10.1); Carbon Dioxide 30.5 mMol/L (20.0-31.0); Chloride 101 mMol/L (98-107); Creatinine (Component) 2.5 mg/dL (0.6-1.3); Estimated Creatinine Clearance 21.6 mL/min (>60); Globulin 3.6 gm/dL (2.3-3.5); Glucose 114 mg/dL (74-106); Osmolality,Calculated 313 (275-295); Sodium 141 mMol/L (136-145); Total Protein 7.1 gm/dL (5.7-8.2); eGFR 25 See Note
[2024-12-22 15:49] LABS: Collection Type, Urine Clean Catch
[2024-12-22 15:53] LABS: Bilirubin,Urine Negative (Negative); Blood,Urine Negative (Negative); Clarity,Urine Clear (Clear/Hazy); Color,Urine Yellow (Lt Yel-Yel); Culture Indicated,Urine Not Indicated; Glucose, Urine Negative (Negative); Hyaline Casts,Urine < 1 /hpf (0-1); Ketones,Urine Negative (Negative); Leukocyte Esterase,Urine Negative (Negative); Nitrite,Urine Negative (Negative); PH,Urine 5.5 (5.0-7.0); Protein,Urine Negative (Neg - Trace); RBC,Urine 1 /hpf (0-3); Specific Gravity,Urine 1.014 (1.001-1.035); Squamous Epithelial Cell,Urine 1 /hpf (0-5); Urobilinogen,Urine Negative mg/dL (0.0-1.0); WBC,Urine 2 /hpf (0-5)
[2024-12-22] MEDS: SODIUM CHLORIDE 0.9% 250 ML 250 ML 999 ML IV (16:21)
[2024-12-22 18:29] LABS: Bacteria,Urine Rare; Bilirubin,Urine Negative (Negative); Blood,Urine Negative (Negative); Clarity,Urine Clear (Clear/Hazy); Color,Urine Yellow (Lt Yel-Yel); Glucose, Urine Negative (Negative); Hyaline Casts,Urine 1 /hpf (0-1); Ketones,Urine Negative (Negative); Leukocyte Esterase,Urine Negative (Negative); Nitrite,Urine Negative (Negative); PH,Urine 5.5 (5.0-7.0); Protein,Urine Negative (Neg - Trace); RBC,Urine 3 /hpf (0-3); Specific Gravity,Urine 1.014 (1.001-1.035); Squamous Epithelial Cell,Urine < 1 /hpf (0-5); Urobilinogen,Urine Negative mg/dL (0.0-1.0); WBC,Urine 1 /hpf (0-5)
[2024-12-22] MEDS: HEPARIN SOD INJ 5000 UNIT/ML VIAL SC (23:48)
[2024-12-23] VITALS (10 sets, daily range): BP systolic 116–134; BP diastolic 60–79; PULSE 0–84; RESP 14–97; TEMP 36.1–36.9; O2SAT 95–99; BMI 24.0
[2024-12-23] MEDS: LEVOTHYROXINE SODIUM 25 MCG TABLET 75 MCG PO (05:14)
[2024-12-23] MEDS: HEPARIN SOD INJ 5000 UNIT/ML VIAL SC (05:15)
[2024-12-23 06:14] LABS: Basophils % (Auto) 1 % (0-2.5); Eosinophils # (Auto) 0.1 Thou/mm3 (0.0-0.5); Eosinophils % (Auto) 2 % (0-10); Hematocrit 31.8 % (41.0-53.0); Hemoglobin 10.4 g/dL (13.5-16.0); Immature Granulocytes % (Auto) 0 % (0-0); Immature Granulocytes Auto 0.03 Thou/mm3 (0.00-0.00); Lymphocytes # (Auto) 1.2 Thou/mm3 (1.0-4.8); Lymphocytes % (Auto) 17 % (10-50); Mean Corpuscular HGB Conc 32.7 g/dl (31.0-37.0); Mean Corpuscular Hemoglobin 31.9 pg (25.0-35.0); Mean Corpuscular Volume 98 fL (80-100); Monocytes # (Auto) 0.9 Thou/mm3 (0.0-0.8); Monocytes % (Auto) 13 % (0-12); Neutrophils # (Auto) 4.8 Thou/mm3 (1.8-7.7); Neutrophils % (Auto) 68 % (37-80); Nucleated Red Blood Cell % 0 /100 WBC (0); Platelet Count 256 Thou/mm3 (140-440); RDW Standard Deviation 62.3 fL (35.1-43.9); Red Blood Count 3.26 Miln/mm3 (4.50-5.90)
[2024-12-23 06:24] LABS: Alanine Aminotransferase 105 U/L (10-49); Albumin, Serum 3.4 gm/dL (3.4-4.8); Albumin/Globulin Ratio 0.9 (1.2-2.2); Alkaline Phosphatase 208 U/L (46-116); Anion Gap 12 (7-16); Aspartate Amino Transferase 62 U/L (0-34); BUN/Creatinine Ratio 34 Ratio (12-20); Bilirubin,Total 2.1 mg/dL (0.3-1.2); Blood Urea Nitrogen 91 mg/dL (9-23); Calcium 8.9 mg/dL (8.3-10.6); Calcium (Corrected) 9.4 mg/dL (8.5-10.1); Carbon Dioxide 25.6 mMol/L (20.0-31.0); Cardiac Risk Estimate 3.8 RATIO (4.0-6.7); Chloride 103 mMol/L (98-107); Cholesterol 121 mg/dL (132-200); Creatinine (Component) 2.7 mg/dL (0.6-1.3); Globulin 3.8 gm/dL (2.3-3.5); Glucose 100 mg/dL (74-106); HDL Cholesterol 32 mg/dL (40-60); LDL Cholesterol,Calculated 72 mg/dL (0-130); Magnesium 2.1 mg/dL (1.6-2.6); Osmolality,Calculated 309 (275-295); Phosphorous 4.6 mg/dL (2.4-5.1); Potassium 4.3 mMol/L (3.4-5.1); Sodium 141 mMol/L (136-145); Thyroid Stimulating Hormone 18.49 uIU/mL (0.55-4.78); Total Protein 7.2 gm/dL (5.7-8.2); Triglycerides 86 mg/dL (30-150); eGFR 22 See Note
[2024-12-23 06:40] LABS: Glucose Estimated Average 123 mg/dL (80-131); Hemoglobin A1C 5.9 % Hgb (4.8-6.0)
[2024-12-23] MEDS: APIXABAN 2.5 MG TABLET PO ×2 (08:04→20:57)
[2024-12-23] MEDS: AMIODARONE HCL 200 MG TABLET PO (08:04)
[2024-12-23] MEDS: SENNA TABLET 1 TAB PO (08:06)
[2024-12-23 08:19] LABS: Free T4 (Free Thyroxine) 1.25 ng/dL (0.89-1.76)
--- NOTE | 2024-12-23 09:02 | XR_ITS ---
Examination: Retroperitoneal ultrasound, complete Technique: Multiple high resolution grayscale images of the retroperitoneum obtained, including kidneys and bladder. Exam date and time:December 23, 2024 1004 hours INDICATIONS: Back pain beginning 3 days ago FINDINGS: Right kidney 9.5 cm renal cortex 1.7 cm Mild hydronephrosis Multiple benign cysts, the largest 32 mm Right kidney 10.2 cm in the cortex 1.2 cm mild hydronephrosis Small benign cysts, the largest 13 mm Moderate bilateral renal parenchymal scar formation Contracted urinary bladder No prostatomegaly IMPRESSION: Small kidneys with bilateral renal cortical thinning Mild bilateral hydronephrosis Moderate bilateral renal parenchymal scar formation
--- NOTE | 2024-12-23 09:04 | XR_ITS ---
Examination: CT chest, without intravenous contrast. Sagittal and coronal 2-D reconstructions. Exam date and time: December 23, 2024 1105 hours INDICATIONS: Chronic SOB, clinical diagnosis pulmonary fibrosis CTDI:vol (mGy) 1023 DLP: (mGycm) 352 Technique: Multiple 3.0 mm axial sections of the chest to been obtained. Bone and lung density settings are obtained. Sagittal and coronal 2-D reconstructions have been obtained. Low dose protocols were performed. One or more of the following dose reduction techniques were used; automated exposure control, adjustment of the mA and/or KV according to patient size, use of iterative reconstruction technique. 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
--- NOTE | 2024-12-23 09:05 | ECHO_ITS ---
Transthoracic Echo Report Ht (in): 69 Wt (lb): 162 Exam Location: Echo Lab Status: Inpatient Nut Roaster: Susy Treviño Indications: Procedure Performed: BP: 144 / 73 HR: 76 Technical Quality: Technically difficult study MEASUREMENTS (Male / Female) Normal Values 2D ECHO LV Diastolic Diameter PLAX 5.3 cm 4.2 - 5.9 / 3.9 - 5.3 cm LV Systolic Diameter PLAX 4.4 cm IVS Diastolic Thickness 1.3 cm 0.6 - 1.0 / 0.6 - 0.9 cm LVPW Diastolic Thickness 1.1 cm 0.6 - 1.0 / 0.6 - 0.9 cm LV Relative Wall Thickness 0.5 LVOT Diameter 1.8 cm Aortic Root Diameter 3.4 cm LA Systolic Diameter LX 3.6 cm 3.0 - 4.0 / 2.7 - 3.8 cm LA Volume Index 23.4 cm?/m? 16 - 28 cm?/m? DOPPLER AV Peak Velocity 91.8 cm/s AV Peak Gradient 3.4 mmHg AV Mean Gradient 2.0 mmHg AV Velocity Time Integral 20.9 cm AI Peak Velocity 273.0 cm/s AI Peak Gradient 29.8 mmHg AI Pressure Half Time 808.5 ms LVOT Peak Velocity 85.0 cm/s LVOT Peak Gradient 2.9 mmHg LVOT Velocity Time Integral 17.4 cm LVOT Cardiac Index 1774.2 cm?/min?m? AV Area Cont Eq vti 2.1 cm? AV Area Cont Eq pk 2.4 cm? MV Peak Velocity 140.0 cm/s MV Peak Gradient 7.8 mmHg MV Mean Velocity 68.0 cm/s MV Mean Gradient 2.0 mmHg MV Area PHT 3.6 cm? MR Peak Velocity 500.5 cm/s MR Peak Gradient 100.2 mmHg Mitral E Point Velocity 142.0 cm/s Mitral A Point Velocity 42.2 cm/s Mitral E to A Ratio 3.4 LV E' Lateral Velocity 3.3 cm/s Mitral E to LV E' Lateral Ratio 43.6 LV E' Septal Velocity 4.1 cm/s Mitral E to LV E' Septal Ratio 34.4 TR Peak Velocity 268.7 cm/s TR Peak Gradient 28.9 mmHg PV Peak Velocity 85.5 cm/s PV Peak Gradient 2.9 mmHg FINDINGS Left Ventricle Normal left ventricular size. Mild LVH. Global left ventricular systolic function is severely decreased. There is grade III diastolic dysfunction of the left ventricle (restrictive filling pattern). The ejection fraction is visually estimated at 25%. Right Ventricle The right ventricle is normal in size.the right ventricular systolic function is moderately decreased. The estimated right ventricular systolic pressure, 48 mmHg. RAP 15. Left Atrium The left atrium is normal by two-dimensional, color flow and Doppler imaging with no structural abnormalities, no thrombus formation present. Right Atrium The right atrial cavity size is moderately increased. Atrial Septum The interatrial septum appears normal with no evidence of a shunt. Aorta The aorta is normal by two-dimensional, color flow and Doppler interrogation. Mitral Valve Moderate mitral regurgitation. Aortic Valve [id number] aortic valve regurgitation. Tricuspid Valve There is mild to moderate tricuspid valve regurgitation. Pulmonic Valve Trivial pulmonic valve regurgitation. Vessels The pulmonary artery appears normal. The inferior vena cava pulmonary and hepatic veins appear normal. Pericardium The pericardium is normal by two-dimensional imaging. There is no significant pericardial effusion. CONCLUSIONS Indication: Heart Failure Normal LV size. Mild LVH. Global LV systolic function is severely decreased. There is grade III diastolic dysfunction. Estimated EF 25%. RV is normal in size. RV systolic function is moderately decreased. The estimated RVSP, 48 mmHg. RAP 15. RA cavity size is moderately increased. Moderate MR. [id number] AI. Mild to moderate TR. Trivial PI. Marcelino Mcconnell (Electronically Signed) Final Date: 25 December 2024 07:24
--- NOTE | 2024-12-23 09:27 | PC.SS ---
Patient Ivan Conley is a 84 Year old male admitted for Dehydration. SS met with patient at bedside to verify demographic information. Patient reports he lives at home with his son, Keren Conley who he reports is surrogate decision maker [phone]. Patient reports that prior to admission he was able to ambulate and did not utilize any source of DME. Patient is able to complete all ADLs independently. Choice of pharmacy is [id number]. PCP is [facility]. At time of discharge patient will return back home. Patient's son will provide transportation Next of kin: SonKeren Discharge plan: Home
--- NOTE | 2024-12-23 09:48 | PD.RESPRO ---
Documentation for date of: 12/23/24 Exam Vital Signs Temp Pulse Resp BP Pulse Ox O2 Del Method O2 Flow Rate 97.4 F 75 18 132/75 H 99 Nasal Cannula 2 12/23/24 08:00 12/23/24 08:04 12/23/24 08:00 12/23/24 08:04 12/23/24 08:00 12/23/24 08:00 12/23/24 04:00 Objective Labs 12/23/24 04:10 12/23/24 04:10 Labs: Laboratory Results - last 24 hr 12/22/24 12/22/24 12/22/24 08:50 12:00 15:01 WBC RBC Hgb Hct MCV MCH MCHC RDW Std Deviation Plt Count Neut % (Auto) Lymph % (Auto) Gem % (Auto) Eos % (Auto) Baso % (Auto) Neut # (Auto) Lymph # (Auto) Gem # (Auto) Eos # (Auto) Baso # (Auto) Immature Gran # (Auto) Absolute Nucleated RBC Immature Gran % Nucleated RBC % Sodium 141 Potassium 4.0 Chloride 101 Carbon Dioxide 30.5 Anion Gap 10 BUN 103 H* 100 H Creatinine 2.5 H Estim Creat Clear Calc 21.6 L eGFR 25 L BUN/Creatinine Ratio 40 H Glucose [address] Glu mg/dL Hemoglobin A1c Calculated Osmolality 313 H Calcium 8.7 Corrected Calcium 9.1 Phosphorus Magnesium Total Bilirubin 1.8 H AST 65 H ALT 115 H Alkaline Phosphatase 211 H Troponin I 0.157 H* Total Protein 7.1 Albumin 3.5 Globulin 3.6 H Albumin/Globulin Ratio 1.0 L Triglycerides Cholesterol LDL Cholesterol, Calc HDL Cholesterol Cholesterol/HDL Ratio TSH Free T4 Ur Collection Type Urine Color Urine Clarity Urine pH Ur Specific [place] Urine Protein Urine Glucose (UA) Urine Ketones Urine Blood Urine Nitrite Urine Bilirubin Urine Urobilinogen (Auto) Ur Leukocyte Esterase Urine RBC Urine WBC Ur Squamous Epith Cells Urine Bacteria Hyaline Casts Ur Culture Indicated? 12/22/24 12/22/24 12/22/24 15:33 15:33 15:33 WBC RBC Hgb Hct MCV MCH MCHC RDW Std Deviation Plt Count Neut % (Auto) Lymph % (Auto) Gem % (Auto) Eos % (Auto) Baso % (Auto) Neut # (Auto) Lymph # (Auto) Gem # (Auto) Eos # (Auto) Baso # (Auto) Immature Gran # (Auto) Absolute Nucleated RBC Immature Gran % Nucleated RBC % Sodium Potassium Chloride Carbon Dioxide Anion Gap BUN Creatinine Estim Creat Clear Calc eGFR BUN/Creatinine Ratio Glucose Estimated Ave Glu mg/dL Hemoglobin A1c Calculated Osmolality Calcium Corrected Calcium Phosphorus Magnesium Total Bilirubin AST ALT Alkaline Phosphatase Troponin I Total Protein Albumin Globulin Albumin/Globulin Ratio Triglycerides Cholesterol LDL Cholesterol, Calc HDL Cholesterol Cholesterol/HDL Ratio TSH Free T4 Ur Collection Type Clean Catch Clean Catch Urine Color Yellow Yellow Urine Clarity Clear Urine pH Ur Specific [place] Urine Protein Urine Glucose (UA) Urine Ketones Urine Blood Urine Nitrite Urine Bilirubin Urine Urobilinogen (Auto) Ur Leukocyte Esterase Urine RBC Urine WBC Ur Squamous Epith Cells Urine Bacteria Hyaline Casts Ur Culture Indicated? 12/22/24 12/22/24 12/22/24 15:33 15:33 15:33 WBC RBC Hgb Hct MCV MCH MCHC RDW Std Deviation Plt Count Neut % (Auto) Lymph % (Auto) Gem % (Auto) Eos % (Auto) Baso % (Auto) Neut # (Auto) Lymph # (Auto) Gem # (Auto) Eos # (Auto) Baso # (Auto) Immature Gran # (Auto) Absolute Nucleated RBC Immature Gran % Nucleated RBC % Sodium Potassium Chloride Carbon Dioxide Anion Gap BUN Creatinine Estim Creat Clear Calc eGFR BUN/Creatinine Ratio Glucose Estimated Ave Glu mg/dL Hemoglobin A1c Calculated Osmolality Calcium Corrected Calcium Phosphorus Magnesium Total Bilirubin AST ALT Alkaline Phosphatase Troponin I Total Protein Albumin Globulin Albumin/Globulin Ratio Triglycerides Cholesterol LDL Cholesterol, Calc HDL Cholesterol Cholesterol/HDL Ratio TSH Free T4 Ur Collection Type Urine Color Urine Clarity Clear Urine pH 5.5 5.5 Ur Specific [place] 1.014 1.014 Urine Protein Negative Urine Glucose (UA) Urine Ketones Urine Blood Urine Nitrite Urine Bilirubin Urine Urobilinogen (Auto) Ur Leukocyte Esterase Urine RBC Urine WBC Ur Squamous Epith Cells Urine Bacteria Hyaline Casts Ur Culture Indicated? 12/22/24 12/22/24 12/22/24 15:33 15:33 15:33 WBC RBC Hgb Hct MCV MCH MCHC RDW Std Deviation Plt Count Neut % (Auto) Lymph % (Auto) Gem % (Auto) Eos % (Auto) Baso % (Auto) Neut # (Auto) Lymph # (Auto) Gem # (Auto) Eos # (Auto) Baso # (Auto) Immature Gran # (Auto) Absolute Nucleated RBC Immature Gran % Nucleated RBC % Sodium Potassium Chloride Carbon Dioxide Anion Gap BUN Creatinine Estim Creat Clear Calc eGFR BUN/Creatinine Ratio Glucose Estimated Ave Glu mg/dL Hemoglobin A1c Calculated Osmolality Calcium Corrected Calcium Phosphorus Magnesium Total Bilirubin AST ALT Alkaline Phosphatase Troponin I Total Protein Albumin Globulin Albumin/Globulin Ratio Triglycerides Cholesterol LDL Cholesterol, Calc HDL Cholesterol Cholesterol/HDL Ratio TSH Free T4 Ur Collection Type Urine Color Urine Clarity Urine pH Ur Specific [place] Urine Protein Negative Urine Glucose (UA) Negative Negative Urine Ketones Negative Negative Urine Blood Negative Urine Nitrite Urine Bilirubin Urine Urobilinogen (Auto) Ur Leukocyte Esterase Urine RBC Urine WBC Ur Squamous Epith Cells Urine Bacteria Hyaline Casts Ur Culture Indicated? 12/22/24 12/22/24 12/22/24 15:33 15:33 15:33 WBC RBC Hgb Hct MCV MCH MCHC RDW Std Deviation Plt Count Neut % (Auto) Lymph % (Auto) Gem % (Auto) Eos % (Auto) Baso % (Auto) Neut # (Auto) Lymph # (Auto) Gem # (Auto) Eos # (Auto) Baso # (Auto) Immature Gran # (Auto) Absolute Nucleated RBC Immature Gran % Nucleated RBC % Sodium Potassium Chloride Carbon Dioxide Anion Gap BUN Creatinine Estim Creat Clear Calc eGFR BUN/Creatinine Ratio Glucose Estimated Ave Glu mg/dL Hemoglobin A1c Calculated Osmolality Calcium Corrected Calcium Phosphorus Magnesium Total Bilirubin AST ALT Alkaline Phosphatase Troponin I Total Protein Albumin Globulin Albumin/Globulin Ratio Triglycerides Cholesterol LDL Cholesterol, Calc HDL Cholesterol Cholesterol/HDL Ratio TSH Free T4 Ur Collection Type Urine Color Urine Clarity Urine pH Ur Specific [place] Urine Protein Urine Glucose (UA) Urine Ketones Urine Blood Negative Urine Nitrite Negative Negative Urine Bilirubin Negative Negative Urine Urobilinogen (Auto) Negative Ur Leukocyte Esterase Urine RBC Urine WBC Ur Squamous Epith Cells Urine Bacteria Hyaline Casts Ur Culture Indicated? 12/22/24 12/22/24 12/22/24 15:33 15:33 15:33 WBC RBC Hgb Hct MCV MCH MCHC RDW Std Deviation Plt Count Neut % (Auto) Lymph % (Auto) Gem % (Auto) Eos % (Auto) Baso % (Auto) Neut # (Auto) Lymph # (Auto) Gem # (Auto) Eos # (Auto) Baso # (Auto) Immature Gran # (Auto) Absolute Nucleated RBC Immature Gran % Nucleated RBC % Sodium Potassium Chloride Carbon Dioxide Anion Gap BUN Creatinine Estim Creat Clear Calc eGFR BUN/Creatinine Ratio Glucose Estimated Ave Glu mg/dL Hemoglobin A1c Calculated Osmolality Calcium Corrected Calcium Phosphorus Magnesium Total Bilirubin AST ALT Alkaline Phosphatase Troponin I Total Protein Albumin Globulin Albumin/Globulin Ratio Triglycerides Cholesterol LDL Cholesterol, Calc HDL Cholesterol Cholesterol/HDL Ratio TSH Free T4 Ur Collection Type Urine Color Urine Clarity Urine pH Ur Specific [place] Urine Protein Urine Glucose (UA) Urine Ketones Urine Blood Urine Nitrite Urine Bilirubin Urine Urobilinogen (Auto) Negative Ur Leukocyte Esterase Negative Negative Urine RBC 1 3 Urine WBC 2 Ur Squamous Epith Cells Urine Bacteria Hyaline Casts Ur Culture Indicated? 12/22/24 12/22/24 12/22/24 15:33 15:33 15:33 WBC RBC Hgb Hct MCV MCH MCHC RDW Std Deviation Plt Count Neut % (Auto) Lymph % (Auto) Gem % (Auto) Eos % (Auto) Baso % (Auto) Neut # (Auto) Lymph # (Auto) Gem # (Auto) Eos # (Auto) Baso # (Auto) Immature Gran # (Auto) Absolute Nucleated RBC Immature Gran % Nucleated RBC % Sodium Potassium Chloride Carbon Dioxide Anion Gap BUN Creatinine Estim Creat Clear Calc eGFR BUN/Creatinine Ratio Glucose Estimated Ave Glu mg/dL Hemoglobin A1c Calculated Osmolality Calcium Corrected Calcium Phosphorus Magnesium Total Bilirubin AST ALT Alkaline Phosphatase Troponin I Total Protein Albumin Globulin Albumin/Globulin Ratio Triglycerides Cholesterol LDL Cholesterol, Calc HDL Cholesterol Cholesterol/HDL Ratio TSH Free T4 Ur Collection Type Urine Color Urine Clarity Urine pH Ur Specific [place] Urine Protein Urine Glucose (UA) Urine Ketones Urine Blood Urine Nitrite Urine Bilirubin Urine Urobilinogen (Auto) Ur Leukocyte Esterase Urine RBC Urine WBC 1 Ur Squamous Epith Cells 1 < 1 Urine Bacteria None Rare Hyaline Casts < 1 Ur Culture Indicated? 12/22/24 12/23/24 15:33 04:10 WBC 7.0 RBC 3.26 L Hgb 10.4 L Hct 31.8 L MCV 98 MCH 31.9 MCHC 32.7 RDW Std Deviation 62.3 H Plt Count 256 Neut % (Auto) 68 Lymph % (Auto) 17 Gem % (Auto) 13 H Eos % (Auto) 2 Baso % (Auto) 1 Neut # (Auto) 4.8 Lymph # (Auto) 1.2 Gem # (Auto) 0.9 H Eos # (Auto) 0.1 Baso # (Auto) 0.0 Immature Gran # (Auto) 0.03 H Absolute Nucleated RBC 0.00 Immature Gran % 0 Nucleated RBC % 0 Sodium 141 Potassium 4.3 Chloride 103 Carbon Dioxide 25.6 Anion Gap 12 BUN 91 H Creatinine 2.7 H Estim Creat Clear Calc 20.0 L eGFR 22 L BUN/Creatinine Ratio 34 H Glucose [address] Glu mg/dL 123 Hemoglobin A1c 5.9 Calculated Osmolality 309 H Calcium 8.9 Corrected Calcium 9.4 Phosphorus 4.6 Magnesium 2.1 Total Bilirubin 2.1 H AST 62 H ALT 105 H Alkaline Phosphatase 208 H Troponin I Total Protein 7.2 Albumin 3.4 Globulin 3.8 H Albumin/Globulin Ratio 0.9 L Triglycerides 86 Cholesterol 121 L LDL Cholesterol, Calc 72 HDL Cholesterol 32 L Cholesterol/HDL Ratio 3.8 L TSH 18.49 H Free T4 1.25 Ur Collection Type Urine Color Urine Clarity Urine pH Ur Specific [place] Urine Protein Urine Glucose (UA) Urine Ketones Urine Blood Urine Nitrite Urine Bilirubin Urine Urobilinogen (Auto) Ur Leukocyte Esterase Urine RBC Urine WBC Ur Squamous Epith Cells Urine Bacteria Hyaline Casts 1 Ur Culture Indicated? Not Indicated Quality Measures Quality Measures none Assessment & Plan Assessment Current Active Medications: Generic Name Dose Route Start Last Admin Trade Name Freq PRN Reason Stop Dose Admin Acetaminophen 650 mg 12/22/24 14:23 Acetaminophen 325 Mg Tablet PO 01/21/25 14:22 Q6H PRN Fever >101.5 Amiodarone HCl 200 mg 12/23/24 09:00 12/23/24 08:04 Amiodarone Hcl 200 Mg Tablet PO 01/22/25 08:59 200 mg QDAY HAYES Administration Apixaban 2.5 mg 12/23/24 09:00 12/23/24 08:04 Apixaban 2.5 Mg Tablet PO 01/22/25 08:59 2.5 mg BID HAYES Administration Dextrose 25 ml 12/22/24 16:16 Dextrose 50%-Water Inj 50 Ml Syringe IV 01/21/25 16:15 Q15MIN PRN BG 50-70 responsive npo pt Dextrose 50 ml 12/22/24 16:16 Dextrose 50%-Water Inj 50 Ml Syringe IV 01/21/25 16:15 Q15MIN PRN BG <50 OR BG <70 & pt unresponsive Glucagon 1 mg 12/22/24 16:16 Glucagon Inj 1 Mg Vial IM Q15MIN PRN BG <70, and no IV access Sodium Chloride 1,000 mls @ 100 mls/hr 12/23/24 09:02 Ns 0.45% IV 12/23/24 19:01 .Q10H ONE Insulin Human Lispro 0 unit 12/22/24 17:00 12/23/24 07:36 Insulin Lispro (Admelog) 1 Unit/0.01 Ml Unit SC 01/21/25 16:59 Not Given AC HAYES Protocol Levothyroxine Sodium 75 mcg 12/23/24 06:00 12/23/24 05:14 Levothyroxine Sodium 25 Mcg Tablet PO 01/22/25 05:59 75 mcg ACBR HAYES Administration Ondansetron HCl 4 mg 12/22/24 14:23 Ondansetron Inj 2 Mg/Ml Inj 2 Ml IV 01/21/25 14:22 Q6H PRN NAUSEA OR VOMITING Protocol Sennosides 1 tab 12/23/24 09:00 12/23/24 08:06 Senna Tablet PO 01/22/25 08:59 1 tab QDAY HAYES Administration Protocol
[2024-12-23] MEDS: SODIUM CHLORIDE 0.45 % 1,000 ML 100 ML IV (10:16)
--- NOTE | 2024-12-23 10:22 | PD.RESCONSUL ---
HPI Data of Consult Consult date: 12/23/24 Requesting Physician: Dedra Suarez MD Admitting Provider: Dedra Suarez MD Attending Provider: Dedra Suarez MD Primary Care Provider: Physician No Primary/Family Consult Narrative Reason for consult: FUNMILAYO on CKD History of present illness: Mr. Conley is a 84-year-old male, that is new to our facility, past medical history of CHF (unknown EF), A-fib, hypertension, type 2 diabetes mellitus, hypothyroidism and recent L4 vertebral fractures the presented overnight from her rehab facility after being found on the floor. According to chart patient was found to have a noticeable facial droop and was hence transferred to the ED. In the ED patient was found to be alert and oriented however he was unable to recall the events. Patient denied any prodromal symptoms or symptoms such as dizziness, visual disturbances, slurred speech, focal weakness or facial droop. He also denied any chest pain shortness of breath or palpitations or previous episodes of syncope. Patient states that he has not been eating well recently due to decreased appetite. He was recently discharged from [facility] following a surgery for L4 fracture which was complicated by cardiac arrest with asystole. The nephrology team was consulted for patient's possible FUNMILAYO on CKD. On examination patient does look very dehydrated and after reviewing medications only significant medication is Bumex 20 mg p.o. twice daily. This morning his electrolytes were within normal limits however he did have a BUN of 91 and a creatinine of 2.7 from 2.1 when he initially presented. We are unsure what patient's baseline creatinine at this time and we are requesting records from [facility] for comparison. cc:: cc: Dedra Suarez MD Review of Systems Review of Systems Systems Reviewed: All systems reviewed, normal except as documented Exam Vital Signs Temp Pulse Resp BP Pulse Ox O2 Del Method O2 Flow Rate 97.4 F 75 18 132/75 H 99 Nasal Cannula 2 12/23/24 08:00 12/23/24 08:04 12/23/24 08:00 12/23/24 08:04 12/23/24 08:00 12/23/24 08:00 12/23/24 04:00 Narrative Exam Constitutional: Elderly male in no acute distress looks very dehydrated Head: Normocephalic/Atraumatic Eyes: PERRL , no conjunctival injection , symmetrical lids. ENMT: Dry mucous Membranes, No trauma or injury. Neck: Supple to palpation, No JVD CVS: RRR, S1 and S2 present, no murmurs, rubs or gallops . RESP: CTAB, no SOB, no rales bilateral fine crackles heard. GI: Normal BS, Nontender/Nondistended. MSK: Full range of motion, No trauma or deformities or masses. Skin: Warm to touch, Dry. No rashes or lesions. No hematomas Neuro: hadoop application developer II-XII grossly intact. Sensation grossly intact. Psych: (AAO) x3 . Appropriate mood and affect. Results Labs 12/23/24 04:10 12/23/24 04:10 Labs: Short CBC 12/23/24 Range/Units 04:10 WBC 7.0 (3.8-10.6) Thou/mm3 Hgb 10.4 L (13.5-16.0) g/dL Hct 31.8 L (41.0-53.0) % Plt Count 256 (140-440) Thou/mm3 BMP 12/22/24 12/23/24 15:01 04:10 Sodium 141 141 Potassium 4.0 4.3 Chloride 101 103 Carbon Dioxide 30.5 25.6 BUN 100 H 91 H Creatinine 2.5 H 2.7 H Glucose 114 H 100 Calcium 8.7 8.9 Cardiac Enzymes 12/22/24 Range/Units 12:00 Troponin I 0.157 H* (0.0-0.045) ng/mL Liver Function 12/22/24 12/23/24 Range/Units 15:01 04:10 Total Bilirubin 1.8 H 2.1 H (0.3-1.2) mg/dL AST 65 H 62 H (0-34) U/L ALT 115 H 105 H (10-49) U/L Alkaline Phosphatase 211 H 208 H (46-116) U/L Albumin 3.5 3.4 (3.4-4.8) gm/dL Urine 12/22/24 12/22/24 12/22/24 Range/Units 15:33 15:33 15:33 Urine Color Yellow Yellow (Lt Yel-Yel) Urine Clarity Clear Clear (Clear/Hazy) Urine pH 5.5 (5.0-7.0) Ur Specific [place] (1.001-1.035) Urine Protein (Neg - Trace) Urine Glucose (UA) (Negative) 12/22/24 12/22/24 12/22/24 Range/Units 15:33 15:33 15:33 Urine Color (Lt Yel-Yel) Urine Clarity (Clear/Hazy) Urine pH 5.5 (5.0-7.0) Ur Specific [place] 1.014 1.014 (1.001-1.035) Urine Protein Negative Negative (Neg - Trace) Urine Glucose (UA) Negative (Negative) 12/22/24 Range/Units 15:33 Urine Color (Lt Yel-Yel) Urine Clarity (Clear/Hazy) Urine pH (5.0-7.0) Ur Specific [place] (1.001-1.035) Urine Protein (Neg - Trace) Urine Glucose (UA) Negative (Negative) Quality Measures Quality Measures none Advance care planning discussed with:: patient Medications Home Medications and Allergies Home Medications ?Medication ?Instructions ?Recorded ?Confirmed ?Type amiodarone 200 mg tablet 200 mg PO QDAY 12/23/24 12/23/24 History apixaban 2.5 mg tablet (Eliquis) 2.5 mg PO BID 12/23/24 12/23/24 History bumetanide 2 mg tablet 2 mg PO BID 12/23/24 12/23/24 History glipizide 5 mg tablet 5 mg PO QDAY 12/23/24 12/23/24 History levothyroxine 75 mcg tablet 75 mcg PO QDAY 12/23/24 12/23/24 History lidocaine 5 % topical patch 1 patch topical Q12HR PRN moderate 12/23/24 12/23/24 History pain (scale score 5-6) metoprolol succinate 25 mg 25 mg PO QDAY 12/23/24 12/23/24 History tablet,extended release 24 hr sitagliptin phosphate 25 mg tablet 25 mg PO QDAY 12/23/24 12/23/24 History (Wilfredouvia) Allergies Allergy/AdvReac Type Severity Reaction Status Date / Time No Known Drug Allergies Allergy Verified 12/22/24 08:19 Visit Medications Acetaminophen (Acetaminophen 325 Mg Tablet) 650 mg PO Q6H PRN PRN Reason: Fever >101.5 Stop: 01/21/25 14:22 Amiodarone HCl (Amiodarone Hcl 200 Mg Tablet) 200 mg PO QDAY [facility] Stop: 01/22/25 08:59 Last Admin: 12/23/24 08:04 Dose: 200 mg Apixaban (Apixaban 2.5 Mg Tablet) 2.5 mg PO BID [facility] Stop: 01/22/25 08:59 Last Admin: 12/23/24 08:04 Dose: 2.5 mg Dextrose (Dextrose 50%-Water Inj 50 Ml Syringe) 25 ml IV Q15MIN PRN PRN Reason: BG 50-70 responsive npo pt Stop: 01/21/25 16:15 Dextrose (Dextrose 50%-Water Inj 50 Ml Syringe) 50 ml IV Q15MIN PRN PRN Reason: BG <50 OR BG <70 & pt unresponsive Stop: 01/21/25 16:15 Glucagon (Glucagon Inj 1 Mg Vial) 1 mg IM Q15MIN PRN PRN Reason: BG <70, and no IV access Sodium Chloride (Ns 0.45%) 1,000 mls @ 100 mls/hr IV .Q10H ONE Stop: 12/23/24 19:01 Last Admin: 12/23/24 10:16 Dose: 100 mls/hr Insulin Human Lispro (Insulin Lispro (Admelog) 1 Unit/0.01 Ml Unit) 0 unit SC AC [facility]; Protocol Stop: 01/21/25 16:59 Last Admin: 12/23/24 07:36 Dose: Not Given Levothyroxine Sodium (Levothyroxine Sodium 25 Mcg Tablet) 75 mcg PO ACBR [facility] Stop: 01/22/25 05:59 Last Admin: 12/23/24 05:14 Dose: 75 mcg Ondansetron HCl (Ondansetron Inj 2 Mg/Ml Inj 2 Ml) 4 mg IV Q6H PRN; Protocol PRN Reason: NAUSEA OR VOMITING Stop: 01/21/25 14:22 Sennosides (Senna Tablet) 1 tab PO QDAY [facility]; Protocol Stop: 01/22/25 08:59 Last Admin: 12/23/24 08:06 Dose: 1 tab Discontinued Medications Heparin Sodium (Porcine) (Heparin Sod Inj 5000 Unit/Ml Vial) 5,000 unit SC Q8HR [facility] Stop: 01/05/25 21:59 Last Admin: 12/23/24 05:15 Dose: 5,000 unit Sodium Chloride (Ns) 1,000 mls @ 999 mls/hr IV .Q1H1M ONE Stop: 12/22/24 11:44 Last Infusion: 12/22/24 15:47 Dose: Infused Sodium Chloride (Ns) 250 mls @ 999 mls/hr IV .Q16M ONE Stop: 12/22/24 14:38 Last Infusion: 12/22/24 17:24 Dose: Infused Assessment & Plan Plan 84-year-old male, that is new to our facility, past medical history of CHF (unknown EF), A-fib, hypertension, type 2 diabetes mellitus, hypothyroidism and recent L4 vertebral fractures that presented after a fall from a nursing facility. Nephrology was consulted for patient's FUNMILAYO and possible underlying CKD #FUNMILAYO #Possible underlying CKD On initial facesheet transfer from nursing facility it states that patient does have CKD but we are not sure what patient's baseline creatinine or EGFR is We are requesting records from [facility] at this time His creatinine was 2.7 this morning which has increased from 2.1 when he initially presented On physical examination patient does look extremely dry with decreased skin turgor Patient is taking Bumex 2 mg p.o. twice daily Plan: ? Giving patient half NS 1 L cc at 100 cc/h x 1 ?Hold Bumex for now ? Echocardiogram ordered ? Ordered CT chest without contrast to rule out possible underlying pulmonary fibrosis ? Strict CECILLE's ? Urine sodium ordered ? Bilateral renal ultrasound ordered ? Follow-up with daily since renal function panel ? Avoid nephrotoxic medications ? Follow-up with [facility] records #Hyperbilirubinemia #Transaminitis #Elevated troponins likely 2/2 #NSTEMI type ll #Normocytic Anemia #History of A-fib #History of CHF #Primary hypertension #[id number] type 2 diabetes #Hypothyroidism #History of L4 fracture s/p repair surgery #Cholelithiasis ?Managed by primary team Thank you for allowing us to be part of patient's care during his time at [facility] I discussed patient's care with attending physician, Dr Sonia Hairston PGY3 Attending Provider Attestation/Addendum Patient seen and examined with resident physician Dr. Hairston. Note reviewed, agree with findings and recommendations. Mr. Jack is a 83-year-old gentleman who was at [facility] for L4 fracture,s/p Cardiorespiratory arrest and was resuscitated and transferred to rehab.records pending he was brought to the emergency department from rehab status post fall and noted to be in FUNMILAYO. Clinically patient looks rather dehydrated. Renal/bladder ultrasound ordered. Urine electrolytes ordered. Agree with continuing IV fluids. Thank you Dr. Suarez for allowing me to participate in the care of Mr. Conley.
--- NOTE | 2024-12-23 16:12 | PD.SURCONS ---
HPI Consult details History of present illness: 84M with HTN, DMII, CHF, atrial fibrillation and hypothyroidism who was brought to ER after being found down at home with a noticeable facial droop. As part of workup pt was found to have elevated liver enzymes and underwent abdominal US which showed cholelithiasis with possible cholecystitis for which general surgery is consulted. Pt denies any current or recent abdominal pain, has been eating without any postprandial pain and he is unaware of any known history of cirrhosis PMH: HTN, DMII, CHF, atrial fibrillation and hypothyroidism PShx: Hernia repair, back surgery Meds: includes eliquis Allergies: NKDA Review of Systems Review of Systems ROS Unobtainable: All systems reviewed & no additional complaints except as documented Meds Home Medications and Allergies Home Medications ?Medication ?Instructions ?Recorded ?Confirmed ?Type amiodarone 200 mg tablet 200 mg PO QDAY 12/23/24 12/23/24 History apixaban 2.5 mg tablet (Eliquis) 2.5 mg PO BID 12/23/24 12/23/24 History bumetanide 2 mg tablet 2 mg PO BID 12/23/24 12/23/24 History glipizide 5 mg tablet 5 mg PO QDAY 12/23/24 12/23/24 History levothyroxine 75 mcg tablet 75 mcg PO QDAY 12/23/24 12/23/24 History lidocaine 5 % topical patch 1 patch topical Q12HR PRN moderate 12/23/24 12/23/24 History pain (scale score 5-6) metoprolol succinate 25 mg 25 mg PO QDAY 12/23/24 12/23/24 History tablet,extended release 24 hr sitagliptin phosphate 25 mg tablet 25 mg PO QDAY 12/23/24 12/23/24 History (Januvia) Allergies Allergy/AdvReac Type Severity Reaction Status Date / Time No Known Drug Allergies Allergy Verified 12/22/24 08:19 Exam Vital Signs Temp Pulse Resp BP Pulse Ox O2 Del Method O2 Flow Rate 97.7 F 84 16 134/61 H 99 Nasal Cannula 1 12/23/24 12:00 12/23/24 12:00 12/23/24 12:00 12/23/24 12:00 12/23/24 12:00 12/23/24 12:00 12/23/24 12:00 Constitutional Constitutional: no acute distress Routine Respiratory Exam Respiratory: Present no resp distress Routine Abdominal Exam Abdominal: Present soft; Absent tenderness or distended Results Results: Laboratory Laboratory results: results reviewed Results: Imaging US - abdomen: report reviewed Assessment & Plan Plan 84M with HTN, DMII, CHF, atrial fibrillation and hypothyroidism who was brought to ER after being found down at home with a noticeable facial droop, incidentally found to have transaminitis and cholelithiasis which is asymptomatic. As he is asymptomatic and is high risk for surgery I would not perform any intervention
--- NOTE | 2024-12-23 16:31 | ESPR_ITS ---
<Statement entered by Dedra Suarez MD - 12/27/24 12:10> I reviewed above note and agree with findings and plans. I have also personally examined the patient with medicine team and went over assessment and plan with medical team including help desk internship and resident physician. <Statement entered by Lenin Warren MD - 12/25/24 09:18> Senior Resident Attestation: I supervised/discussed management plan with help desk internship physician Dr. Foley, and was involved in the care of this patient. I personally saw and examined the patient and discussed the assessment and plan with the entire medicine team, including my attending. I agree with the assessment and plan as documented. Patient's care was discussed with attending physician, Dr. Suarez. Lenin Warren MD PGY-2. Documentation for date of: 12/23/24 Subjective Subjective Interval history: No acute overnight events reported. At bedside this morning patient is resting comfortably saturating on room air. Pt denies chest pain, palpitations, shortness of breath, abdominal pain or dysuria. Patient states he has no complaints right now and he was able to get some sleep last night. Labs are significant for BUN 91 and creatinine 2.7, GFR 22, total bilirubin 2.1, AST 62, ALT 105. Due to worsening FUNMILAYO we will consult nephrology. Limited to giving excessive hydration because patient has history of CHF. Patient currently has no symptoms we will order labs for hepatitis and cocci. Exam Vital Signs Temp Pulse Resp BP Pulse Ox O2 Del Method O2 Flow Rate 97.7 F 84 16 134/61 H 99 Nasal Cannula 1 12/23/24 12:12/23/24 12:12/23/24 12:12/23/24 12:12/23/24 12:12/23/24 12:12/23/24 12:00 Narrative Exam GENERAL: A&Ox3 . Awake, Not in acute distress NEURO: no focal neurological deficits HEENT: Atraumatic, Normocephalic. mucous membranes moist. Eyes open, symmetrical, & clear HEART: Normal Heart Sounds LUNGS: Clear to auscultation with no wheezing or crackles. ABDOMEN: soft, non-distended, non-tender, bowel sounds heard, no guarding or rebound tenderness SKIN: No Rash or ecchymoses EXTREMITIES: No edema, tenderness, able to move all 4 extremities, pedal pulses palpated Objective Labs 12/23/24 04:10 12/23/24 04:10 Labs: Laboratory Results - last 24 hr 12/22/24 12/23/24 15:33 04:10 WBC 7.0 RBC 3.26 L Hgb 10.4 L Hct 31.8 L MCV 98 MCH 31.9 MCHC 32.7 RDW Std Deviation 62.3 H Plt Count 256 Neut % (Auto) 68 Lymph % (Auto) 17 [place] % (Auto) 13 H Eos % (Auto) 2 Baso % (Auto) 1 Neut # (Auto) 4.8 Lymph # (Auto) 1.2 [place] # (Auto) 0.9 H Eos # (Auto) 0.1 Baso # (Auto) 0.0 Immature Gran # (Auto) 0.03 H Absolute Nucleated RBC 0.00 Immature Gran % 0 Nucleated RBC % 0 Sodium 141 Potassium 4.3 Chloride 103 Carbon Dioxide 25.6 Anion Gap 12 BUN 91 H Creatinine 2.7 H Estim Creat Clear Calc 20.0 L eGFR 22 L BUN/Creatinine Ratio 34 H Glucose [address] Glu mg/dL 123 Hemoglobin A1c 5.9 Calculated Osmolality 309 H Calcium 8.9 Corrected Calcium 9.4 Phosphorus 4.6 Magnesium 2.1 Total Bilirubin 2.1 H AST 62 H ALT 105 H Alkaline Phosphatase 208 H Total Protein 7.2 Albumin 3.4 Globulin 3.8 H Albumin/Globulin Ratio 0.9 L Triglycerides 86 Cholesterol 121 L LDL Cholesterol, Calc 72 HDL Cholesterol 32 L Cholesterol/HDL Ratio 3.8 L TSH 18.49 H Free T4 1.25 Ur Collection Type Clean Catch Urine Color Yellow Urine Clarity Clear Urine pH 5.5 Ur Specific [place] 1.014 Urine Protein Negative Urine Glucose (UA) Negative Urine Ketones Negative Urine Blood Negative Urine Nitrite Negative Urine Bilirubin Negative Urine Urobilinogen (Auto) Negative Ur Leukocyte Esterase Negative Urine RBC 3 Urine WBC 1 Ur Squamous Epith Cells < 1 Urine Bacteria Rare Hyaline Casts 1 Quality Measures Quality Measures none Advance care planning discussed with:: child Assessment & Plan Assessment Current Active Medications: Generic Name Dose Route Start Last Admin Trade Name Freq PRN Reason Stop Dose Admin Acetaminophen 650 mg 12/22/24 14:23 Acetaminophen 325 Mg Tablet PO 01/21/25 14:22 Q6H PRN Fever >101.5 Amiodarone HCl 200 mg 12/23/24 09:00 12/23/24 08:04 Amiodarone Hcl 200 Mg Tablet PO 01/22/25 08:59 200 mg QDAY HAYES Administration Apixaban 2.5 mg 12/23/24 09:00 12/23/24 08:04 Apixaban 2.5 Mg Tablet PO 01/22/25 08:59 2.5 mg BID HAYES Administration Dextrose 25 ml 12/22/24 16:16 Dextrose 50%-Water Inj 50 Ml Syringe IV 01/21/25 16:15 Q15MIN PRN BG 50-70 responsive npo pt Dextrose 50 ml 12/22/24 16:16 Dextrose 50%-Water Inj 50 Ml Syringe IV 01/21/25 16:15 Q15MIN PRN BG <50 OR BG <70 & pt unresponsive Glucagon 1 mg 12/22/24 16:16 Glucagon Inj 1 Mg Vial IM Q15MIN PRN BG <70, and no IV access Sodium Chloride 1,000 mls @ 100 mls/hr 12/23/24 09:02 12/23/24 10:16 Ns 0.45% IV 12/23/24 19:01 100 mls/hr .Q10H ONE Administration Insulin Human Lispro 0 unit 12/22/24 17:00 12/23/24 11:47 Insulin Lispro (Admelog) 1 Unit/0.01 Ml Unit SC 01/21/25 16:59 Not Given AC HAYES Protocol Levothyroxine Sodium 75 mcg 12/23/24 06:00 12/23/24 05:14 Levothyroxine Sodium 25 Mcg Tablet PO 01/22/25 05:59 75 mcg ACBR HAYES Administration Ondansetron HCl 4 mg 12/22/24 14:23 Ondansetron Inj 2 Mg/Ml Inj 2 Ml IV 01/21/25 14:22 Q6H PRN NAUSEA OR VOMITING Protocol Sennosides 1 tab 12/23/24 09:00 12/23/24 08:06 Senna Tablet PO 01/22/25 08:59 1 tab QDAY HAYES Administration Protocol Plan Mr. Conley is An 84-year-old male with a past medical history significant for congestive heart failure (CHF), atrial fibrillation (A-fib), hypertension, type 2 diabetes mellitus, hypothyroidism, and a recent L4 vertebral fracture presented to the Emergency Department (ED) from a rehabilitation center after being found on the floor. Pt is admitted for management of dehydration and uremia. #Acute kidney injury #possible CKD #Elevated BUN 2/2 #Dehydration -Due to poor oral intake, Pt has had decreased appetite since back surgery earlier this month -Patient presented from a rehab facility, after being found on the floor. However patient denies any falls but cannot recall any events leading. Patient is not altered he is alert oriented to time place and is able to recognize his son at bedside. - On labs BUN is 103, creatinine 2.7, GFR 22, calculated osmolality 313 - Patient denies any chest pain, pressure or palpitations - In the ED patient received 1 L NS bolus -FUNMILAYO is likely due to prerenal secondary to dehydration. - Unable to compare previous labs but in October patient was in the ED with creatinine 2.1 and today 2.7, patient denies any history of kidney disease Plan: -Will continue aggressive hydration -Repeat CMP -And continue to monitor patient's labs and mentation -Avoid nephrotoxic and renally dose medications -Percussion Tuner Dr. Scott consulted #Hyperbilirubinemia #Transaminitis #Hx. of cirrhosis #ascites -On admission total bilirubin 1.8, AST 65, ALT 115 -Patient denies right upper quadrant tenderness or pain -Likely secondary to dehydration due to poor oral intake -Hepatitis panel ordered -Will continue to monitor daily labs #Elevated troponins likely 2/2 #NSTEMI type ll -Troponin 0.156 -> 0.157, likely demand ischemia in the setting of FUNMILAYO and recent surgery -Pt denies chest pain, pressure or palpitations -EKG does not show any acute ST or T wave changes #Normocytic Anemia - improving -Hgb 9.5, Hct 29.2, MCV 94 -No signs of active bleeding, pt denies melena or hematochezia -Will continue to monitor daily CBC #History of A-fib #History of CHF -EKG in the ED shows ventricular paced, QTc of 540 -Patient denies any chest pain palpitations or pressure BNP > 3280 -Pt follows Dr. Albert in [place] outpatient Plan: -Pending med rec #Primary hypertension -On admission patient's blood pressure is soft, 117/72 -Will hold home antihypertensive medication for now and resume when able #Prw-tmeivcr-rljalbkdy type 2 diabetes -Will start patient on insulin sliding scale -Hypoglycemia protocol in place -ACHS ordered -A1c ordered for am labs #Ascending thoracic aortic aneurysm, 4.7cm -CT of chest shows aneurysmal dilation of ascending thoracic aorta measuring 4.7 cm - No previous CT or imaging available to compare the size -Maintain good blood pressure control, follow up outpatient with primary care and obtain referral to cardiology as well as vascular surgery for further evaluation #Pulmonary nodule -CT of chest shows 22 mm pulmonary upper lobe, patient made aware -Will need to follow-up outpatient for further workup #Severe pulmonary fibrosis #Bronchiectasis right upper lobe #COPD -Supplemental oxygen as needed -Pt will need outpatient follow with physical education specialist #History of L4 fracture s/p repair surgery -Earlier this month pt underwent L4 fracture repair surgery at [facility], and had been at the rehab center for PT #Cholelithiasis #suspicious for Acute Cholecytitis - Abdominal ultrasound shows a 16 mm gallstone - Patient denies any abdominal pain or tenderness in the right upper quadrant region - Surgical consult placed, per surgery, pt is asymptomatic and high risk for surgery therefore surgical intervention not recommended #Hypothyroidism -resumed home levothyroixine 75mcg -TSH 18.49, FT4 1.25 likely in the setting of acute illness -recommend pt should follow up outpatient and repeat labs Health Maintenance Disposition: Telemetry DVT Prophylaxis: Heparin 5000 units SC Q8 hrs GI Prophylaxis: not indicated Diet: Dysphagia 2 diet Lines: Peripheral lines Code status: DNR/DNI Assessment and plan discussed with my senior resident Dr. Warren & attending physician Dr. Erick Giraldo (PGY-1)- Internal medicine resident
[2024-12-24] VITALS (11 sets, daily range): BP systolic 90–144; BP diastolic 54–78; PULSE 61–116; RESP 12–96; TEMP 36–36.8; O2SAT 94–100; BMI 23.9
[2024-12-24] MEDS: LEVOTHYROXINE SODIUM 25 MCG TABLET 75 MCG PO (05:02)
[2024-12-24 06:20] LABS: Alanine Aminotransferase 87 U/L (10-49); Albumin, Serum 3.4 gm/dL (3.4-4.8); Albumin/Globulin Ratio 0.9 (1.2-2.2); Alkaline Phosphatase 196 U/L (46-116); Anion Gap 10 (7-16); Aspartate Amino Transferase 52 U/L (0-34); BUN/Creatinine Ratio 34 Ratio (12-20); Basophils % (Auto) 1 % (0-2.5); Bilirubin,Total 1.9 mg/dL (0.3-1.2); Blood Urea Nitrogen 96 mg/dL (9-23); Calcium (Corrected) 9.5 mg/dL (8.5-10.1); Carbon Dioxide 28.6 mMol/L (20.0-31.0); Chloride 98 mMol/L (98-107); Creatinine (Component) 2.8 mg/dL (0.6-1.3); Eosinophils # (Auto) 0.2 Thou/mm3 (0.0-0.5); Eosinophils % (Auto) 3 % (0-10); Estimated Creatinine Clearance 19.3 mL/min (>60); Globulin 3.7 gm/dL (2.3-3.5); Glucose 114 mg/dL (74-106); Hematocrit 28.3 % (41.0-53.0); Hemoglobin 9.4 g/dL (13.5-16.0); Immature Granulocytes % (Auto) 1 % (0-0); Immature Granulocytes Auto 0.03 Thou/mm3 (0.00-0.00); Lymphocytes % (Auto) 15 % (10-50); Magnesium 2.3 mg/dL (1.6-2.6); Mean Corpuscular HGB Conc 33.2 g/dl (31.0-37.0); Mean Corpuscular Hemoglobin 31.8 pg (25.0-35.0); Mean Corpuscular Volume 96 fL (80-100); Monocytes # (Auto) 0.7 Thou/mm3 (0.0-0.8); Monocytes % (Auto) 12 % (0-12); Neutrophils # (Auto) 4.4 Thou/mm3 (1.8-7.7); Neutrophils % (Auto) 70 % (37-80); Nucleated Red Blood Cell % 0 /100 WBC (0); Osmolality,Calculated 304 (275-295); Phosphorous 4.4 mg/dL (2.4-5.1); Platelet Count 241 Thou/mm3 (140-440); Potassium 3.9 mMol/L (3.4-5.1); RDW Standard Deviation 59.6 fL (35.1-43.9); Red Blood Count 2.96 Miln/mm3 (4.50-5.90); Sodium 137 mMol/L (136-145); Total Protein 7.1 gm/dL (5.7-8.2); White Blood Count 6.3 Thou/mm3 (3.8-10.6); eGFR 21 See Note
[2024-12-24] MEDS: AMIODARONE HCL 200 MG TABLET PO (08:44)
[2024-12-24] MEDS: SENNA TABLET 1 TAB PO (08:44)
[2024-12-24] MEDS: APIXABAN 2.5 MG TABLET PO ×2 (08:44→20:31)
--- NOTE | 2024-12-24 09:04 | ESPR_ITS ---
Documentation for date of: 12/24/24 Subjective Subjective Interval history: Mr. Conley is a 84-year-old [place] male, that is new to our facility, past medical history of CHF (unknown EF), A-fib, hypertension, type 2 diabetes mellitus, hypothyroidism and recent L4 vertebral fractures the presented overnight from her rehab facility after being found on the floor. According to chart patient was found to have a noticeable facial droop and was hence transferred to the ED. In the ED patient was found to be alert and oriented however he was unable to recall the events. Patient denied any prodromal symptoms or symptoms such as dizziness, visual disturbances, slurred speech, focal weakness or facial droop. He also denied any chest pain shortness of breath or palpitations or previous episodes of syncope. Patient states that he has not been eating well recently due to decreased appetite. He was recently discharged from [facility] following a surgery for L4 fracture which was complicated by cardiac arrest with asystole. The nephrology team was consulted for patient's possible FUNMILAYO on CKD. On examination patient does look very dehydrated and after reviewing medications only significant medication is Bumex 2 mg p.o. twice daily. This morning his electrolytes were within normal limits however he did have a BUN of 91 and a creatinine of 2.7 from 2.1 when he initially presented. We are unsure what patient's baseline creatinine at this time and we are requesting records from [facility] for comparison. 12/24/2024 currently seen in telemetry. Resting comfortably. he seems to be puffy. Son, [id number] at bedside. Will give 1 dose of diuretics. Review of Systems Review of Systems Narrative Review of Systems: Complaining of shortness of breath. Denies any chest pain. No nausea, vomiting. Exam Vital Signs Temp Pulse Resp BP Pulse Ox O2 Del Method O2 Flow Rate 36.8 C 116 H 19 116/77 94 L Room Air 1 12/24/24 04:00 12/24/24 08:44 12/24/24 04:00 12/24/24 08:44 12/24/24 04:00 12/24/24 04:00 12/23/24 12:00 Narrative Exam Constitutional: Elderly male in no acute distress Periorbital edema CVS: RRR, S1 and S2 present, no murmurs, rubs or gallops . RESP: CTAB, no SOB, no rales bilateral fine crackles heard. GI: Normal BS, Nontender/Nondistended. MSK: Full range of motion, No trauma or deformities or masses. Skin: Warm to touch, Dry. No rashes or lesions. No hematomas Neuro: ballistics tester II-XII grossly intact. Sensation grossly intact. Psych: (AAO) x3 . Appropriate mood and affect. Objective Labs 12/25/24 05:05 12/25/24 05:05 Labs: Laboratory Results - last 24 hr 12/24/24 04:50 WBC 6.3 RBC 2.96 L Hgb 9.4 L Hct 28.3 L MCV 96 MCH 31.8 MCHC 33.2 RDW Std Deviation 59.6 H Plt Count 241 Neut % (Auto) 70 Lymph % (Auto) 15 [place] % (Auto) 12 Eos % (Auto) 3 Baso % (Auto) 1 Neut # (Auto) 4.4 Lymph # (Auto) 1.0 [place] # (Auto) 0.7 Eos # (Auto) 0.2 Baso # (Auto) 0.0 Immature Gran # (Auto) 0.03 H Absolute Nucleated RBC 0.00 Immature Gran % 1 H Nucleated RBC % 0 Sodium 137 Potassium 3.9 Chloride 98 Carbon Dioxide 28.6 Anion Gap 10 BUN 96 H Creatinine 2.8 H Estim Creat Clear Calc 19.3 L eGFR 21 L BUN/Creatinine Ratio 34 H Glucose 114 H Calculated Osmolality 304 H Calcium 9.0 Corrected Calcium 9.5 Phosphorus 4.4 Magnesium 2.3 Total Bilirubin 1.9 H AST 52 H ALT 87 H Alkaline Phosphatase 196 H Total Protein 7.1 Albumin 3.4 Globulin 3.7 H Albumin/Globulin Ratio 0.9 L Assessment & Plan Additional Assessment & Plan Additional Plan: 84-year-old male, that is new to our facility, past medical history of CHF (unknown EF), A-fib, hypertension, type 2 diabetes mellitus, hypothyroidism and recent L4 vertebral fractures that presented after a fall from a nursing facility. Nephrology was consulted for patient's FUNMILAYO and possible underlying CKD #FUNMILAYO #Possible underlying CKD On initial facesheet transfer from nursing facility it states that patient does have CKD but we are not sure what patient's baseline creatinine or EGFR is We are requesting records from [facility] at this time His creatinine was 2.7 this morning which has increased from 2.1 when he initially presented On physical examination patient does look extremely dry with decreased skin turgor Patient is taking Bumex 2 mg p.o. twice daily Plan: ? Reviewed all the records from [facility]-his baseline creatinine is between 2-2.2. Echocardiogram 30%. Spoke to Dr. Hodges-will give 1 dose of Lasix today. ? Echocardiogram ordered ? CT chest without contrast- showed severe pulmonary fibrosis, bronchiectasis- no CHF ? Strict CECILLE's ? Urine sodium ordered ? Bilateral renal ultrasound ordered ? Follow-up with daily since renal function panel ? Avoid nephrotoxic medications ? Follow-up with [facility] records #Hyperbilirubinemia #Transaminitis #Elevated troponins likely 2/2 #NSTEMI type ll #Normocytic Anemia #History of A-fib #History of CHF #Primary hypertension #Vnr-mvclvzs-xntlurqmj type 2 diabetes #Hypothyroidism #History of L4 fracture s/p repair surgery #Cholelithiasis ?Managed by primary team
[2024-12-24 14:41] LABS: Cocci Serology, IgM Negative (Negative)
[2024-12-24] MEDS: FUROSEMIDE INJ 10 MG/ML 4ML VIAL 40 MG IVP (17:04)
--- NOTE | 2024-12-24 17:17 | ESPR_ITS ---
<Statement entered by Dedra Suarez MD - 12/27/24 14:55> I reviewed above note and agree with findings and plans. I have also personally examined the patient with medicine team and went over assessment and plan with medical team including internet database specialist and resident physician. <Statement entered by Carson Sifuentes MD - 12/25/24 10:18> Patient seen at bedside. Nephrology recommends one dose of lasix to increase urine output. Patient and family made aware of kidney function and possible need for dialysis. Will continue to monitor creatinine and avoid nephrotoxic agents. Case discussed with team. Carson Sifuentes MD PGY3. Documentation for date of: 12/24/24 Subjective Subjective Interval history: No acute overnight events reported. Patient seen and examined at bedside this morning. Patient states he has no complaints this not have shortness of breath, chest pain, palpitation or abdominal pain. patient states he has no complaints and would like to go home. Vitals are stable with blood pressure 144/73 currently saturating above 94% on 1 L oxygen via nasal cannula. Labs are significant for hemoglobin 9.4, BUN 96, creatinine 2.8, T. bili 1.9, AST 52, ALT 87. Upon chart review being patient has been having 0% of meal intake however patient's son and [id number] are bedside to confirm that they have been bringing food from home for him which he has been eating majority of it. Will order PT for tomorrow. Per nephrology patient is likely in ATN with minimal urine production we will try Lasix 40 , will monitor for urine output. pt has no other complains. Exam Vital Signs Temp Pulse Resp BP Pulse Ox O2 Del Method O2 Flow Rate 97.0 F 80 19 127/66 97 Room Air 1 12/24/24 12:00 12/24/24 17:04 12/24/24 12:00 12/24/24 17:04 12/24/24 12:00 12/24/24 12:00 12/24/24 08:00 Narrative Exam GENERAL: A&Ox3 . Awake, Not in acute distress NEURO: no focal neurological deficits HEENT: Atraumatic, Normocephalic. mucous membranes moist. Eyes open, symmetrical, & clear HEART: Normal Heart Sounds LUNGS: Clear to auscultation with no wheezing or crackles. ABDOMEN: soft, non-distended, non-tender, bowel sounds heard, no guarding or rebound tenderness SKIN: No Rash or ecchymoses EXTREMITIES: No edema, tenderness, able to move all 4 extremities, pedal pulses palpated Objective Labs 12/24/24 04:50 12/24/24 04:50 Labs: Laboratory Results - last 24 hr 12/23/24 12/24/24 15:05 04:50 WBC 6.3 RBC 2.96 L Hgb 9.4 L Hct 28.3 L MCV 96 MCH 31.8 MCHC 33.2 RDW Std Deviation 59.6 H Plt Count 241 Neut % (Auto) 70 Lymph % (Auto) 15 [place] % (Auto) 12 Eos % (Auto) 3 Baso % (Auto) 1 Neut # (Auto) 4.4 Lymph # (Auto) 1.0 [place] # (Auto) 0.7 Eos # (Auto) 0.2 Baso # (Auto) 0.0 Immature Gran # (Auto) 0.03 H Absolute Nucleated RBC 0.00 Immature Gran % 1 H Nucleated RBC % 0 Sodium 137 Potassium 3.9 Chloride 98 Carbon Dioxide 28.6 Anion Gap 10 BUN 96 H Creatinine 2.8 H Estim Creat Clear Calc 19.3 L eGFR 21 L BUN/Creatinine Ratio 34 H Glucose 114 H Calculated Osmolality 304 H Calcium 9.0 Corrected Calcium 9.5 Phosphorus 4.4 Magnesium 2.3 Total Bilirubin 1.9 H AST 52 H ALT 87 H Alkaline Phosphatase 196 H Total Protein 7.1 Albumin 3.4 Globulin 3.7 H Albumin/Globulin Ratio 0.9 L Coccidioides IgM Ab Negative Quality Measures Quality Measures none Advance care planning discussed with:: patient Assessment & Plan Assessment Current Active Medications: Generic Name Dose Route Start Last Admin Trade Name Freq PRN Reason Stop Dose Admin Acetaminophen 650 mg 12/22/24 14:23 Acetaminophen 325 Mg Tablet PO 01/21/25 14:22 Q6H PRN Fever >101.5 Amiodarone HCl 200 mg 12/23/24 09:00 12/24/24 08:44 Amiodarone Hcl 200 Mg Tablet PO 01/22/25 08:59 200 mg QDAY HAYES Administration Apixaban 2.5 mg 12/23/24 09:00 12/24/24 08:44 Apixaban 2.5 Mg Tablet PO 01/22/25 08:59 2.5 mg BID HAYES Administration Dextrose 25 ml 12/22/24 16:16 Dextrose 50%-Water Inj 50 Ml Syringe IV 01/21/25 16:15 Q15MIN PRN BG 50-70 responsive npo pt Dextrose 50 ml 12/22/24 16:16 Dextrose 50%-Water Inj 50 Ml Syringe IV 01/21/25 16:15 Q15MIN PRN BG <50 OR BG <70 & pt unresponsive Glucagon 1 mg 12/22/24 16:16 Glucagon Inj 1 Mg Vial IM Q15MIN PRN BG <70, and no IV access Insulin Human Lispro 0 unit 12/22/24 17:00 12/24/24 16:38 Insulin Lispro (Admelog) 1 Unit/0.01 Ml Unit SC 01/21/25 16:59 Not Given AC HAYES Protocol Levothyroxine Sodium 75 mcg 12/23/24 06:00 12/24/24 05:02 Levothyroxine Sodium 25 Mcg Tablet PO 01/22/25 05:59 75 mcg ACBR HAYES Administration Ondansetron HCl 4 mg 12/22/24 14:23 Ondansetron Inj 2 Mg/Ml Inj 2 Ml IV 01/21/25 14:22 Q6H PRN NAUSEA OR VOMITING Protocol Sennosides 1 tab 12/23/24 09:00 12/24/24 08:44 Senna Tablet PO 01/22/25 08:59 1 tab QDAY HAYES Administration Protocol Plan Mr. Conley is An 84-year-old male with a past medical history significant for congestive heart failure (CHF), atrial fibrillation (A-fib), hypertension, type 2 diabetes mellitus, hypothyroidism, and a recent L4 vertebral fracture presented to the Emergency Department (ED) from a rehabilitation center after being found on the floor. Pt is admitted for management of dehydration and uremia. #Acute kidney injury #possible CKD #ATN, likely #Elevated BUN 2/2 #Dehydration - resolved -Due to poor oral intake, Pt has had decreased appetite since back surgery earlier this month -Patient presented from a rehab facility, after being found on the floor. However patient denies any falls but cannot recall any events leading. Patient is not altered he is alert oriented to time place and is able to recognize his son at bedside. - On labs BUN is 103, creatinine 2.7, GFR 22, calculated osmolality 313 - Patient denies any chest pain, pressure or palpitations - In the ED patient received 1 L NS bolus -FUNMILAYO is likely due to prerenal secondary to dehydration. - Unable to compare previous labs but in October patient was in the ED with creatinine 2.1 and today 2.7, patient denies any history of kidney disease Plan: -Will continue aggressive hydration -monitor daily CMP -And continue to monitor patient's labs and mentation -Avoid nephrotoxic and renally dose medications -Panel Saw Operator Dr. Scott consulted #Hyperbilirubinemia #Transaminitis #Hx. of cirrhosis #ascites -On admission total bilirubin 1.8, AST 65, ALT 115 -Patient denies right upper quadrant tenderness or pain -Likely secondary to dehydration due to poor oral intake -Hepatitis panel ordered -Will continue to monitor daily labs #Elevated troponins likely 2/2 #NSTEMI type ll -Troponin 0.156 -> 0.157, likely demand ischemia in the setting of FUNMILAYO and recent surgery -Pt denies chest pain, pressure or palpitations -EKG does not show any acute ST or T wave changes #Normocytic Anemia - improving -Hgb 9.5, Hct 29.2, MCV 94 -No signs of active bleeding, pt denies melena or hematochezia -Will continue to monitor daily CBC #History of A-fib #History of CHF -EKG in the ED shows ventricular paced, QTc of 540 -Patient denies any chest pain palpitations or pressure BNP > 3280 -Pt follows Dr. Albert in [place] outpatient -CHADs-VASc score 6 Plan: -resumed home amiodarone and eliquis #Primary hypertension -On admission patient's blood pressure is soft, 117/72 -Will hold home antihypertensive medication for now and resume when able #Tlz-xvtvfea-yaishzodj type 2 diabetes -Will start patient on insulin sliding scale -Hypoglycemia protocol in place -ACHS ordered -A1c ordered for am labs #Ascending thoracic aortic aneurysm, 4.7cm -CT of chest shows aneurysmal dilation of ascending thoracic aorta measuring 4.7 cm - No previous CT or imaging available to compare the size -Maintain good blood pressure control, follow up outpatient with primary care and obtain referral to cardiology as well as vascular surgery for further evaluation #Pulmonary nodule -CT of chest shows 22 mm pulmonary upper lobe, patient made aware -Will need to follow-up outpatient for further workup #Severe pulmonary fibrosis #Bronchiectasis right upper lobe #COPD -Supplemental oxygen as needed -Pt will need outpatient follow with wood room hand #History of L4 fracture s/p repair surgery -Earlier this month pt underwent L4 fracture repair surgery at [facility], and had been at the rehab center for PT #Cholelithiasis #suspicious for Acute Cholecytitis - Abdominal ultrasound shows a 16 mm gallstone - Patient denies any abdominal pain or tenderness in the right upper quadrant region - Surgical consult placed, per surgery, pt is asymptomatic and high risk for surgery therefore surgical intervention not recommended #Hypothyroidism -resumed home levothyroixine 75mcg -TSH 18.49, FT4 1.25 likely in the setting of acute illness -recommend pt should follow up outpatient and repeat labs Health Maintenance Disposition: Telemetry DVT Prophylaxis: Pt is on eliquis 2.5 BID for anticoagulation in the setting of a-fib GI Prophylaxis: not indicated Diet: Dysphagia 2 diet Lines: Peripheral lines Code status: DNR/DNI Assessment and plan discussed with my senior resident Dr. Sifuentes & attending physician Dr. Erick Giraldo (PGY-1)- Internal medicine resident
[2024-12-24 21:42] LABS: Sodium,Urine Random 65.7 mMol/L (20.0-110.0)
[2024-12-25] VITALS (9 sets, daily range): BP systolic 127–149; BP diastolic 60–74; PULSE 60–102; RESP 16–98; TEMP 36.1–36.4; O2SAT 94–96; BMI 23.9; BMI 12.0; BMI 24.0
[2024-12-25 03:20] LABS: Hepatitis A Antibody IgM Non Reactive (Non React); Hepatitis B Core Antibody IgM Non Reactive (Non React); Hepatitis B Surface Antigen Non Reactive (Non React); Hepatitis C Antibody Non Reactive (Non React)
[2024-12-25] MEDS: LEVOTHYROXINE SODIUM 25 MCG TABLET 75 MCG PO (05:06)
[2024-12-25 05:37] LABS: Basophils % (Auto) 0 % (0-2.5); Eosinophils # (Auto) 0.1 Thou/mm3 (0.0-0.5); Eosinophils % (Auto) 2 % (0-10); Hematocrit 29.8 % (41.0-53.0); Hemoglobin 9.8 g/dL (13.5-16.0); Immature Granulocytes % (Auto) 1 % (0-0); Immature Granulocytes Auto 0.04 Thou/mm3 (0.00-0.00); Lymphocytes # (Auto) 0.8 Thou/mm3 (1.0-4.8); Lymphocytes % (Auto) 12 % (10-50); Mean Corpuscular HGB Conc 32.9 g/dl (31.0-37.0); Mean Corpuscular Hemoglobin 31.4 pg (25.0-35.0); Mean Corpuscular Volume 96 fL (80-100); Monocytes # (Auto) 0.7 Thou/mm3 (0.0-0.8); Monocytes % (Auto) 11 % (0-12); Neutrophils # (Auto) 4.7 Thou/mm3 (1.8-7.7); Neutrophils % (Auto) 74 % (37-80); Nucleated Red Blood Cell % 0 /100 WBC (0); Platelet Count 206 Thou/mm3 (140-440); RDW Standard Deviation 59.7 fL (35.1-43.9); Red Blood Count 3.12 Miln/mm3 (4.50-5.90); White Blood Count 6.3 Thou/mm3 (3.8-10.6)
[2024-12-25 06:07] LABS: Alanine Aminotransferase 77 U/L (10-49); Albumin, Serum 3.7 gm/dL (3.4-4.8); Albumin/Globulin Ratio 0.9 (1.2-2.2); Alkaline Phosphatase 210 U/L (46-116); Anion Gap 11 (7-16); Aspartate Amino Transferase 48 U/L (0-34); BUN/Creatinine Ratio 33 Ratio (12-20); Bilirubin,Total 1.8 mg/dL (0.3-1.2); Blood Urea Nitrogen 89 mg/dL (9-23); Calcium 9.2 mg/dL (8.3-10.6); Calcium (Corrected) 9.4 mg/dL (8.5-10.1); Carbon Dioxide 26.7 mMol/L (20.0-31.0); Chloride 97 mMol/L (98-107); Creatinine (Component) 2.7 mg/dL (0.6-1.3); Globulin 3.9 gm/dL (2.3-3.5); Glucose 132 mg/dL (74-106); Magnesium 2.3 mg/dL (1.6-2.6); Osmolality,Calculated 299 (275-295); Phosphorous 3.8 mg/dL (2.4-5.1); Potassium 4.3 mMol/L (3.4-5.1); Sodium 135 mMol/L (136-145); Total Protein 7.6 gm/dL (5.7-8.2); eGFR 22 See Note
--- NOTE | 2024-12-25 08:33 | ESPR_ITS ---
Documentation for date of: 12/25/24 Subjective Subjective Interval history: Mr. Conley is a 84-year-old [place]ian male, that is new to our facility, past medical history of CHF (unknown EF), A-fib, hypertension, type 2 diabetes mellitus, hypothyroidism and recent L4 vertebral fractures the presented overnight from her rehab facility after being found on the floor. According to chart patient was found to have a noticeable facial droop and was hence transferred to the ED. In the ED patient was found to be alert and oriented however he was unable to recall the events. Patient denied any prodromal symptoms or symptoms such as dizziness, visual disturbances, slurred speech, focal weakness or facial droop. He also denied any chest pain shortness of breath or palpitations or previous episodes of syncope. Patient states that he has not been eating well recently due to decreased appetite. He was recently discharged from [facility] following a surgery for L4 fracture which was complicated by cardiac arrest with asystole. The nephrology team was consulted for patient's possible FUNMILAYO on CKD. On examination patient does look very dehydrated and after reviewing medications only significant medication is Bumex 2 mg p.o. twice daily. This morning his electrolytes were within normal limits however he did have a BUN of 91 and a creatinine of 2.7 from 2.1 when he initially presented. We are unsure what patient's baseline creatinine at this time and we are requesting records from [facility] for comparison. 12/25/2024: Patient was seen and examined in telemetry today. There were no major overnight events and patient had no complaints this morning. Patient's BUN is 89 with a creatinine of 2.7 this morning.Renal ultrasound showed small kidneys with bilateral renal cortical thinning as well as mild bilateral hydronephrosis with moderate bilateral renal parenchymal scar formation. Chest CT confirmed severe pulmonary fibrosis. Exam Vital Signs Temp Pulse Resp BP Pulse Ox O2 Del Method O2 Flow Rate 97.3 F 63 16 132/60 H 96 Room Air 1 12/25/24 08:00 12/25/24 08:00 12/25/24 08:00 12/25/24 08:00 12/25/24 08:00 12/25/24 08:00 12/25/24 04:00 Narrative Exam Constitutional: Elderly male in no acute distress CVS: RRR, S1 and S2 present, no murmurs, rubs or gallops . RESP: CTAB, no SOB, no rales bilateral fine crackles heard. GI: Normal BS, Nontender/Nondistended. MSK: Full range of motion, No trauma or deformities or masses. Skin: Warm to touch, Dry. No rashes or lesions. No hematomas Neuro: ebd teacher II-XII grossly intact. Sensation grossly intact. Psych: (AAO) x3 . Appropriate mood and affect. Objective Labs 12/25/24 05:05 12/25/24 05:05 Labs: Laboratory Results - last 24 hr 12/23/24 12/23/24 12/23/24 04:41 09:04 15:05 WBC RBC Hgb Hct MCV MCH MCHC RDW Std Deviation Plt Count Neut % (Auto) Lymph % (Auto) [place] % (Auto) Eos % (Auto) Baso % (Auto) Neut # (Auto) Lymph # (Auto) [place] # (Auto) Eos # (Auto) Baso # (Auto) Immature Gran # (Auto) Absolute Nucleated RBC Immature Gran % Nucleated RBC % Sodium Potassium Chloride Carbon Dioxide Anion Gap BUN Creatinine Estim Creat Clear Calc eGFR BUN/Creatinine Ratio Glucose Calculated Osmolality Calcium Corrected Calcium Phosphorus Magnesium Total Bilirubin AST ALT Alkaline Phosphatase Total Protein Albumin Globulin Albumin/Globulin Ratio Ur Random Sodium 65.7 Coccidioides IgM Ab Negative Hepatitis A IgM Ab Non Reactive Hep Bs Antigen Non Reactive Hep B Core IgM Ab Non Reactive Hepatitis C Antibody Non Reactive 12/25/24 05:05 WBC 6.3 RBC 3.12 L Hgb 9.8 L Hct 29.8 L MCV 96 MCH 31.4 MCHC 32.9 RDW Std Deviation 59.7 H Plt Count 206 D Neut % (Auto) 74 Lymph % (Auto) 12 [place] % (Auto) 11 Eos % (Auto) 2 Baso % (Auto) 0 Neut # (Auto) 4.7 Lymph # (Auto) 0.8 L [place] # (Auto) 0.7 Eos # (Auto) 0.1 Baso # (Auto) 0.0 Immature Gran # (Auto) 0.04 H Absolute Nucleated RBC 0.00 Immature Gran % 1 H Nucleated RBC % 0 Sodium 135 L Potassium 4.3 Chloride 97 L Carbon Dioxide 26.7 Anion Gap 11 BUN 89 H Creatinine 2.7 H Estim Creat Clear Calc 20.0 L eGFR 22 L BUN/Creatinine Ratio 33 H Glucose 132 H Calculated Osmolality 299 H Calcium 9.2 Corrected Calcium 9.4 Phosphorus 3.8 Magnesium 2.3 Total Bilirubin 1.8 H AST 48 H ALT 77 H Alkaline Phosphatase 210 H Total Protein 7.6 Albumin 3.7 Globulin 3.9 H Albumin/Globulin Ratio 0.9 L Ur Random Sodium Coccidioides IgM Ab Hepatitis A IgM Ab Hep Bs Antigen Hep B Core IgM Ab Hepatitis C Antibody Quality Measures Quality Measures none Advance care planning discussed with:: patient Assessment & Plan Assessment Current Active Medications: Generic Name Dose Route Start Last Admin Trade Name Freq PRN Reason Stop Dose Admin Acetaminophen 650 mg 12/22/24 14:23 Acetaminophen 325 Mg Tablet PO 01/21/25 14:22 Q6H PRN Fever >101.5 Amiodarone HCl 200 mg 12/23/24 09:00 12/24/24 08:44 Amiodarone Hcl 200 Mg Tablet PO 01/22/25 08:59 200 mg QDAY HAYES Administration Apixaban 2.5 mg 12/23/24 09:00 12/24/24 20:31 Apixaban 2.5 Mg Tablet PO 01/22/25 08:59 2.5 mg BID HAYES Administration Dextrose 25 ml 12/22/24 16:16 Dextrose 50%-Water Inj 50 Ml Syringe IV 01/21/25 16:15 Q15MIN PRN BG 50-70 responsive npo pt Dextrose 50 ml 12/22/24 16:16 Dextrose 50%-Water Inj 50 Ml Syringe IV 01/21/25 16:15 Q15MIN PRN BG <50 OR BG <70 & pt unresponsive Glucagon 1 mg 12/22/24 16:16 Glucagon Inj 1 Mg Vial IM Q15MIN PRN BG <70, and no IV access Insulin Human Lispro 0 unit 12/22/24 17:00 12/25/24 07:44 Insulin Lispro (Admelog) 1 Unit/0.01 Ml Unit SC 01/21/25 16:59 Not Given AC HAYES Protocol Levothyroxine Sodium 75 mcg 12/23/24 06:00 12/25/24 05:06 Levothyroxine Sodium 25 Mcg Tablet PO 01/22/25 05:59 75 mcg ACBR HAYES Administration Ondansetron HCl 4 mg 12/22/24 14:23 Ondansetron Inj 2 Mg/Ml Inj 2 Ml IV 01/21/25 14:22 Q6H PRN NAUSEA OR VOMITING Protocol Sennosides 1 tab 12/23/24 09:00 12/24/24 08:44 Senna Tablet PO 01/22/25 08:59 1 tab QDAY HAYES Administration Protocol Plan 84-year-old male, that is new to our facility, past medical history of CHF (unknown EF), A-fib, hypertension, type 2 diabetes mellitus, hypothyroidism and recent L4 vertebral fractures that presented after a fall from a nursing facility. Nephrology was consulted for patient's FUNMILAYO and possible underlying CKD #FUNMILAYO #ATN #Possible underlying CKD On initial facesheet transfer from nursing facility it states that patient does have CKD but we are not sure what patient's baseline creatinine or EGFR is Patient's Renal ultrasound showed small kidneys with bilateral renal cortical thinning as well as mild bilateral hydronephrosis with moderate bilateral renal parenchymal scar formation His creatinine was 2.7 this morning which has increased from 2.1 when he initially presented On physical examination patient does look extremely dry with decreased skin turgor Patient is taking Bumex 2 mg p.o. twice daily. He received 1 dose of Lasix yesterday Patient likely currently in the ATN Plan: ? Strict CECILLE's ? Follow-up with daily since renal function panel ?Encourage p.o. intake ? Avoid nephrotoxic medications ? Follow-up with [facility] records #HFrEF with 25% EF #Pulmonary fibrosis #Hyperbilirubinemia #Transaminitis #Elevated troponins likely 2/2 #NSTEMI type ll #Normocytic Anemia #History of A-fib #History of CHF #Primary hypertension #Tzi-jechjny-sctghdwrh type 2 diabetes #Hypothyroidism #History of L4 fracture s/p repair surgery #Cholelithiasis ?Managed by primary team Thank you for allowing us to be part of patient's care during his time at [facility] I discussed patient's care with attending physician, Dr Sonia Hairston PGY3 Attending Provider Attestation/Addendum Patient seen and examined with resident physician Dr. Haisrton. Note reviewed, agree with findings and recommendations. Patient currently seen in telemetry. He is feeling slightly better than yesterday. Creatinine stable. Continue with present management. Will need low-dose diuretics as an outpatient due to his ejection fraction of 30%.
[2024-12-25] MEDS: APIXABAN 2.5 MG TABLET PO ×2 (09:01→20:36)
[2024-12-25] MEDS: SENNA TABLET 1 TAB PO (09:01)
[2024-12-25] MEDS: AMIODARONE HCL 200 MG TABLET PO (09:01)
--- NOTE | 2024-12-25 10:09 | PD.SURHP ---
HPI Date of Admission 12/22/24 14:23 HPI 84M with HTN, DMII, CHF, atrial fibrillation and hypothyroidism who was brought to ER after being found down at home with a noticeable facial droop. As part of workup pt was found to have elevated liver enzymes and underwent abdominal US which showed cholelithiasis with possible cholecystitis for which general surgery is consulted. Pt denies any current or recent abdominal pain, has been eating without any postprandial pain and he is unaware of any known history of cirrhosis PMH: HTN, DMII, CHF, atrial fibrillation and hypothyroidism PShx: Hernia repair, back surgery Meds: includes eliquis Allergies: NKDA Review of Systems Constitutional Constitutional: Reports body ache(s) (dtgdhjuyn), Reports fever(s), Reports frequent falls and Reports headache(s) ENT Ears, Nose, Mouth, and Throat: Reports headache(s) Neurologic Neurologic: Reports frequent falls and Reports headache(s) Past Medical History Past Medical History NEUROLOGIC: Positive Cerebrovascular Accident CARDIAC: Positive Myocardial Infarction, Atrial Fibrillation, Heart Murmur, Congestive Heart Failure and Hypertension; Negative Cardiac Disorders RESPIRATORY: Negative Chronic Obstructive Pulmonary Disease (COPD) GENITOURINARY: Positive Renal Disease ENDOCRINE: Positive Diabetes Mellitus Type 2; Negative Diabetes Mellitus Type 1 HEMATOLOGIC: Negative Sickle Cell Disease OTHER HISTORY: Positive Falls Surgical History SURGICAL: Positive Cardiac Surgery and Pacemaker Social History SMOKING STATUS: Unknown if ever smoked Meds Home Medications and Allergies Home Medications ?Medication ?Instructions ?Recorded ?Confirmed ?Type amiodarone 200 mg tablet 200 mg PO QDAY 12/23/24 12/23/24 History apixaban 2.5 mg tablet (Eliquis) 2.5 mg PO BID 12/23/24 12/23/24 History bumetanide 2 mg tablet 2 mg PO BID 12/23/24 12/23/24 History glipizide 5 mg tablet 5 mg PO QDAY 12/23/24 12/23/24 History levothyroxine 75 mcg tablet 75 mcg PO QDAY 12/23/24 12/23/24 History lidocaine 5 % topical patch 1 patch topical Q12HR PRN moderate 12/23/24 12/23/24 History pain (scale score 5-6) metoprolol succinate 25 mg 25 mg PO QDAY 12/23/24 12/23/24 History tablet,extended release 24 hr sitagliptin phosphate 25 mg tablet 25 mg PO QDAY 12/23/24 12/23/24 History (Zoey) Allergies Allergy/AdvReac Type Severity Reaction Status Date / Time No Known Drug Allergies Allergy Verified 12/22/24 08:19 Exam Vital Signs Temp Pulse Resp BP Pulse Ox O2 Del Method O2 Flow Rate 97.3 F 63 16 132/60 H 96 Room Air 1 12/25/24 08:00 12/25/24 09:01 12/25/24 08:00 12/25/24 09:01 12/25/24 08:00 12/25/24 08:00 12/25/24 04:00 Quality Measures Quality Measures none
--- NOTE | 2024-12-25 11:31 | PC.SS ---
SS was informed by Celine at [facility] that pt is currently residing at their facility. KATIE contacted pt Son, Keren [phone] to verify DC plan, and Keren updated SS that pt will return to [facility] upon DC. SS spoke to Celine and sent all updated clinicals as pt insurance requires new auth and MANUELA.
[2024-12-25] MEDS: INSULIN LISPRO (AdmeLOG) 1 UNIT/0.01 ML UNIT SC (11:56)
[2024-12-25 14:38] LABS: Cocci Serology, IgG Negative (Negative)
--- NOTE | 2024-12-25 15:11 | PC.SS ---
Rounding: pending Nephro consult, may need HD. DC plan [facility]
--- NOTE | 2024-12-25 15:54 | ESPR_ITS ---
<Statement entered by Dedra Suarez MD - 12/29/24 08:12> I reviewed above note and agree with findings and plans. I have also personally examined the patient with medicine team and went over assessment and plan with medical team including manufacturing intern and resident physician. <Statement entered by Casron Sifuentes MD - 12/26/24 09:45> Patient seen and assessed at bedside with son present. Patient and son notified about kidney improvement. Patient to work with PT today. Case discussed with team. Carson Sifuentes MD PGY3 Documentation for date of: 12/25/24 Subjective Subjective Interval history: Patient is seen and examined at bedside No acute overnight events. Denies any other complaints and stated that he is feeling better Vitals are stable. Physical examination remains unremarkable Labs showed downtrending BUN and creatinine down trended from 2.8-2.7 Condom catheter was placed today and will continue to monitor urine output and renal functions Exam Vital Signs Temp Pulse Resp BP Pulse Ox O2 Del Method O2 Flow Rate 97.5 F 77 18 131/65 H 94 L Room Air 1 12/25/24 12:00 12/25/24 12:58 12/25/24 12:58 12/25/24 12:00 12/25/24 12:00 12/25/24 12:00 12/25/24 04:00 Narrative Exam General: Awake. HEENT: Normocephalic, atraumatic, mucous membranes moist. Heart: Regular rate and rhythm, no murmurs. Lungs: Clear to auscultation with no wheezing or crackles. Abdomen: Soft, nondistended, nontender, positive bowel sounds. ?No guarding or rebound tenderness. Neurologic: Alert and oriented x3, no gross neurological deficit, and patient able to move all 4 extremities. Extremities: No edema. Skin: No rash or ecchymoses. Objective Labs 12/25/24 05:05 12/25/24 05:05 Labs: Laboratory Results - last 24 hr 12/23/24 12/23/24 12/23/24 04:41 09:04 15:05 WBC RBC Hgb Hct MCV MCH MCHC RDW Std Deviation Plt Count Neut % (Auto) Lymph % (Auto) [place] % (Auto) Eos % (Auto) Baso % (Auto) Neut # (Auto) Lymph # (Auto) [place] # (Auto) Eos # (Auto) Baso # (Auto) Immature Gran # (Auto) Absolute Nucleated RBC Immature Gran % Nucleated RBC % Sodium Potassium Chloride Carbon Dioxide Anion Gap BUN Creatinine Estim Creat Clear Calc eGFR BUN/Creatinine Ratio Glucose Calculated Osmolality Calcium Corrected Calcium Phosphorus Magnesium Total Bilirubin AST ALT Alkaline Phosphatase Total Protein Albumin Globulin Albumin/Globulin Ratio Ur Random Sodium 65.7 Coccidioides IgG Ab Negative Hepatitis A IgM Ab Non Reactive Hep Bs Antigen Non Reactive Hep B Core IgM Ab Non Reactive Hepatitis C Antibody Non Reactive 12/25/24 05:05 WBC 6.3 RBC 3.12 L Hgb 9.8 L Hct 29.8 L MCV 96 MCH 31.4 MCHC 32.9 RDW Std Deviation 59.7 H Plt Count 206 D Neut % (Auto) 74 Lymph % (Auto) 12 [place] % (Auto) 11 Eos % (Auto) 2 Baso % (Auto) 0 Neut # (Auto) 4.7 Lymph # (Auto) 0.8 L [place] # (Auto) 0.7 Eos # (Auto) 0.1 Baso # (Auto) 0.0 Immature Gran # (Auto) 0.04 H Absolute Nucleated RBC 0.00 Immature Gran % 1 H Nucleated RBC % 0 Sodium 135 L Potassium 4.3 Chloride 97 L Carbon Dioxide 26.7 Anion Gap 11 BUN 89 H Creatinine 2.7 H Estim Creat Clear Calc 20.0 L eGFR 22 L BUN/Creatinine Ratio 33 H Glucose 132 H Calculated Osmolality 299 H Calcium 9.2 Corrected Calcium 9.4 Phosphorus 3.8 Magnesium 2.3 Total Bilirubin 1.8 H AST 48 H ALT 77 H Alkaline Phosphatase 210 H Total Protein 7.6 Albumin 3.7 Globulin 3.9 H Albumin/Globulin Ratio 0.9 L Ur Random Sodium Coccidioides IgG Ab Hepatitis A IgM Ab Hep Bs Antigen Hep B Core IgM Ab Hepatitis C Antibody Quality Measures Quality Measures none Advance care planning discussed with:: patient and child Assessment & Plan Assessment Current Active Medications: Generic Name Dose Route Start Last Admin Trade Name Freq PRN Reason Stop Dose Admin Acetaminophen 650 mg 12/22/24 14:23 Acetaminophen 325 Mg Tablet PO 01/21/25 14:22 Q6H PRN Fever >101.5 Amiodarone HCl 200 mg 12/23/24 09:00 12/25/24 09:01 Amiodarone Hcl 200 Mg Tablet PO 01/22/25 08:59 200 mg QDAY HAYES Administration Apixaban 2.5 mg 12/23/24 09:00 12/25/24 09:01 Apixaban 2.5 Mg Tablet PO 01/22/25 08:59 2.5 mg BID HAYES Administration Dextrose 25 ml 12/22/24 16:16 Dextrose 50%-Water Inj 50 Ml Syringe IV 01/21/25 16:15 Q15MIN PRN BG 50-70 responsive npo pt Dextrose 50 ml 12/22/24 16:16 Dextrose 50%-Water Inj 50 Ml Syringe IV 01/21/25 16:15 Q15MIN PRN BG <50 OR BG <70 & pt unresponsive Glucagon 1 mg 12/22/24 16:16 Glucagon Inj 1 Mg Vial IM Q15MIN PRN BG <70, and no IV access Insulin Human Lispro 0 unit 12/22/24 17:00 12/25/24 11:56 Insulin Lispro (Admelog) 1 Unit/0.01 Ml Unit SC 01/21/25 16:59 2 unit AC HAYES Administration Protocol Levothyroxine Sodium 75 mcg 12/23/24 06:00 12/25/24 05:06 Levothyroxine Sodium 25 Mcg Tablet PO 01/22/25 05:59 75 mcg ACBR HAYES Administration Ondansetron HCl 4 mg 12/22/24 14:23 Ondansetron Inj 2 Mg/Ml Inj 2 Ml IV 01/21/25 14:22 Q6H PRN NAUSEA OR VOMITING Protocol Sennosides 1 tab 12/23/24 09:00 12/25/24 09:01 Senna Tablet PO 01/22/25 08:59 1 tab QDAY HAYES Administration Protocol Plan Mr. Conley is An 84-year-old male with a past medical history significant for congestive heart failure (CHF), atrial fibrillation (A-fib), hypertension, type 2 diabetes mellitus, hypothyroidism, and a recent L4 vertebral fracture presented to the Emergency Department (ED) from a rehabilitation center after being found on the floor. Pt is admitted for management of dehydration and uremia. #FUNMILAYO vs Acute on CKD stage IIIb #Elevated BUN 2/2 #ATN, likely #2/2 Dehydration - resolved -Due to poor oral intake, Pt has had decreased appetite since back surgery earlier this month -Patient presented from a rehab facility, after being found on the floor. However patient denies any falls but cannot recall any events leading. Patient is not altered he is alert oriented to time place and is able to recognize his son at bedside. - On labs BUN is 103, creatinine 2.7, GFR 22, calculated osmolality 313 - Patient denies any chest pain, pressure or palpitations - In the ED patient received 1 L NS bolus - FUNMILAYO is likely due to prerenal secondary to dehydration. - Unable to compare previous labs but in October patient was in the ED with creatinine 2.1 and today 2.7, patient denies any history of kidney disease - Renal ultrasound showed small kidneys bilaterally with mild bilateral hydronephrosis Plan: - Encouraged patient to take plenty of oral fluids - Strict input on output, condom catheter is placed -Will monitor renal functions -Avoid nephrotoxic and renally dose medications -Supply Chain Engineer Dr. Scott consulted, will appreciate recommendations #Hyperbilirubinemia #Transaminitis #Hx. of cirrhosis #ascites -On admission total bilirubin 1.8, AST 65, ALT 115 -Patient denies right upper quadrant tenderness or pain -Likely secondary to dehydration due to poor oral intake -Hepatitis panel ordered -Will continue to monitor daily labs #Elevated troponins likely 2/2 #NSTEMI type ll -Troponin 0.156 -> 0.157, likely demand ischemia in the setting of FUNMILAYO and recent surgery -Pt denies chest pain, pressure or palpitations -EKG does not show any acute ST or T wave changes # Chronic normocytic Anemia Could be anemia of chronic kidney disease -Hgb 9.5, Hct 29.2, MCV 94 -No signs of active bleeding, pt denies melena or hematochezia -Will continue to monitor daily CBC #History of A-fib #History of CHF -EKG in the ED shows ventricular paced, QTc of 540 -Patient denies any chest pain palpitations or pressure BNP > 3280 -Pt follows Dr. Albert in [facility] -CHADs-VASc score 6 Plan: -resumed home amiodarone and eliquis #Primary hypertension -On admission patient's blood pressure is soft, 117/72 -Will hold home antihypertensive medication for now and resume when able #Gwp-rqtbekp-bykzcekff type 2 diabetes - A1c on 12/23/2024 is 5.9 - Patient is using glipizide 5 Mg daily at home - Will continue to monitor fasting blood sugars and if needed will add insulin #Ascending thoracic aortic aneurysm, 4.7cm -CT of chest shows aneurysmal dilation of ascending thoracic aorta measuring 4.7 cm - No previous CT or imaging available to compare the size -Maintain good blood pressure control, follow up outpatient with primary care and obtain referral to cardiology as well as vascular surgery for further evaluation #Pulmonary nodule -CT of chest shows 22 mm pulmonary upper lobe, patient made aware -Will need to follow-up outpatient for further workup #Severe pulmonary fibrosis #Bronchiectasis right upper lobe #COPD -Supplemental oxygen as needed -Pt will need outpatient follow with energy consultant #History of L4 fracture s/p repair surgery -Earlier this month pt underwent L4 fracture repair surgery at [facility], and had been at the rehab center for PT #Cholelithiasis #suspicious for Acute Cholecytitis - Abdominal ultrasound shows a 16 mm gallstone - Patient denies any abdominal pain or tenderness in the right upper quadrant region - Surgical consult placed, per surgery, pt is asymptomatic and high risk for surgery therefore surgical intervention not recommended #Hypothyroidism -resumed home levothyroixine 75mcg -TSH 18.49, FT4 1.25 likely in the setting of acute illness -recommend pt should follow up outpatient and repeat labs Health Maintenance Disposition: Telemetry DVT Prophylaxis: Pt is on eliquis 2.5 BID for anticoagulation in the setting of a-fib GI Prophylaxis: not indicated Diet: Dysphagia 2 diet Lines: Peripheral lines Code status: DNR/DNI Patient plan of care was discussed with the attending physician, Dr. Suarez and senior resident Dr. Dr. Bear Foley, PGY1
[2024-12-26] VITALS (7 sets, daily range): BP systolic 109–130; BP diastolic 58–78; PULSE 63–105; RESP 17–98; TEMP 36.1–36.4; O2SAT 93–94; BMI 24.0
[2024-12-26] MEDS: LEVOTHYROXINE SODIUM 25 MCG TABLET 75 MCG PO (05:22)
[2024-12-26 05:45] LABS: Basophils % (Auto) 0 % (0-2.5); Eosinophils # (Auto) 0.2 Thou/mm3 (0.0-0.5); Eosinophils % (Auto) 3 % (0-10); Hematocrit 29.7 % (41.0-53.0); Hemoglobin 9.6 g/dL (13.5-16.0); Immature Granulocytes % (Auto) 1 % (0-0); Immature Granulocytes Auto 0.04 Thou/mm3 (0.00-0.00); Lymphocytes # (Auto) 0.8 Thou/mm3 (1.0-4.8); Lymphocytes % (Auto) 12 % (10-50); Mean Corpuscular HGB Conc 32.3 g/dl (31.0-37.0); Mean Corpuscular Hemoglobin 31.1 pg (25.0-35.0); Mean Corpuscular Volume 96 fL (80-100); Monocytes # (Auto) 0.6 Thou/mm3 (0.0-0.8); Monocytes % (Auto) 9 % (0-12); Neutrophils % (Auto) 76 % (37-80); Nucleated Red Blood Cell % 0 /100 WBC (0); Platelet Count 240 Thou/mm3 (140-440); RDW Standard Deviation 59.4 fL (35.1-43.9); Red Blood Count 3.09 Miln/mm3 (4.50-5.90); White Blood Count 6.7 Thou/mm3 (3.8-10.6)
[2024-12-26 06:15] LABS: Alanine Aminotransferase 62 U/L (10-49); Albumin, Serum 3.6 gm/dL (3.4-4.8); Albumin/Globulin Ratio 0.9 (1.2-2.2); Alkaline Phosphatase 208 U/L (46-116); Anion Gap 10 (7-16); Aspartate Amino Transferase 28 U/L (0-34); BUN/Creatinine Ratio 37 Ratio (12-20); Bilirubin,Total 1.8 mg/dL (0.3-1.2); Blood Urea Nitrogen 92 mg/dL (9-23); Calcium 9.2 mg/dL (8.3-10.6); Calcium (Corrected) 9.5 mg/dL (8.5-10.1); Carbon Dioxide 30.4 mMol/L (20.0-31.0); Chloride 101 mMol/L (98-107); Creatinine (Component) 2.5 mg/dL (0.6-1.3); Estimated Creatinine Clearance 20.9 mL/min (>60); Globulin 3.8 gm/dL (2.3-3.5); Glucose 153 mg/dL (74-106); Osmolality,Calculated 312 (275-295); Potassium 3.6 mMol/L (3.4-5.1); Sodium 141 mMol/L (136-145); Total Protein 7.4 gm/dL (5.7-8.2); eGFR 25 See Note
[2024-12-26] MEDS: Furosemide 20 MG TABLET PO (08:24)
[2024-12-26] MEDS: SENNA TABLET 1 TAB PO (08:24)
[2024-12-26] MEDS: APIXABAN 2.5 MG TABLET PO (08:25)
[2024-12-26] MEDS: AMIODARONE HCL 200 MG TABLET PO (08:25)
--- NOTE | 2024-12-26 09:11 | PD.NEPHPROG ---
Documentation for date of: 12/26/24 Subjective Subjective Interval history: Mr. Conley is a 84-year-old [place] male, that is new to our facility, past medical history of CHF (unknown EF), A-fib, hypertension, type 2 diabetes mellitus, hypothyroidism and recent L4 vertebral fractures the presented overnight from her rehab facility after being found on the floor. According to chart patient was found to have a noticeable facial droop and was hence transferred to the ED. In the ED patient was found to be alert and oriented however he was unable to recall the events. Patient denied any prodromal symptoms or symptoms such as dizziness, visual disturbances, slurred speech, focal weakness or facial droop. He also denied any chest pain shortness of breath or palpitations or previous episodes of syncope. Patient states that he has not been eating well recently due to decreased appetite. He was recently discharged from [facility] following a surgery for L4 fracture which was complicated by cardiac arrest with asystole. The nephrology team was consulted for patient's possible FUNMILAYO on CKD. On examination patient does look very dehydrated and after reviewing medications only significant medication is Bumex 2 mg p.o. twice daily. This morning his electrolytes were within normal limits however he did have a BUN of 91 and a creatinine of 2.7 from 2.1 when he initially presented. We are unsure what patient's baseline creatinine at this time and we are requesting records from [facility] for comparison. 12/25/2024 currently seen in telemetry. Resting comfortably. he seems to be puffy. Creatinine seems to be slightly better. Spoke to primary team-renal murray stable for discharge on low-dose diuretics. Will see him in my office in 1 to 2 weeks for CKD Review of Systems Review of Systems Narrative Review of Systems: Complaining of shortness of breath. Denies any chest pain. No nausea, vomiting. Exam Vital Signs Temp Pulse Resp BP Pulse Ox O2 Del Method O2 Flow Rate 36.4 C 70 19 109/78 94 L Room Air 1 12/26/24 08:00 12/26/24 08:12/26/24 08:00 12/26/24 08:12/26/24 08:00 12/26/24 08:00 12/25/24 04:00 Narrative Exam Constitutional: Elderly male in no acute distress facial puffiness noted CVS: RRR, S1 and S2 present, no murmurs, rubs or gallops . RESP: bilateral fine crackles heard. GI: Normal BS, Nontender/Nondistended. MSK: Full range of motion, No trauma or deformities or masses. Skin: Warm to touch, Dry. No rashes or lesions. 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 Sensation grossly intact. Psych: (AAO) x3 . Appropriate mood and affect. Objective Labs 12/26/24 05:00 12/26/24 05:00 Labs: Laboratory Results - last 24 hr 12/23/24 12/26/24 15:05 05:00 WBC 6.7 RBC 3.09 L Hgb 9.6 L Hct 29.7 L MCV 96 MCH 31.1 MCHC 32.3 RDW Std Deviation 59.4 H Plt Count 240 D Neut % (Auto) 76 Lymph % (Auto) 12 [place] % (Auto) 9 Eos % (Auto) 3 Baso % (Auto) 0 Neut # (Auto) 5.0 Lymph # (Auto) 0.8 L [place] # (Auto) 0.6 Eos # (Auto) 0.2 Baso # (Auto) 0.0 Immature Gran # (Auto) 0.04 H Absolute Nucleated RBC 0.00 Immature Gran % 1 H Nucleated RBC % 0 Sodium 141 Potassium 3.6 D Chloride 101 Carbon Dioxide 30.4 Anion Gap 10 BUN 92 H Creatinine 2.5 H Estim Creat Clear Calc 20.9 L eGFR 25 L BUN/Creatinine Ratio 37 H Glucose 153 H Calculated Osmolality 312 H Calcium 9.2 Corrected Calcium 9.5 Total Bilirubin 1.8 H AST 28 ALT 62 H Alkaline Phosphatase 208 H Total Protein 7.4 Albumin 3.6 Globulin 3.8 H Albumin/Globulin Ratio 0.9 L Coccidioides IgG Ab Negative Assessment & Plan Additional Assessment & Plan Additional Plan: 84-year-old male, that is new to our facility, past medical history of CHF (unknown EF), A-fib, hypertension, type 2 diabetes mellitus, hypothyroidism and recent L4 vertebral fractures that presented after a fall from a nursing facility. Nephrology was consulted for patient's FUNMILAYO and possible underlying CKD #FUNMILAYO #Possible underlying CKD On initial facesheet transfer from nursing facility it states that patient does have CKD but we are not sure what patient's baseline creatinine or EGFR is We are requesting records from [facility] at this time His creatinine was 2.7 this morning which has increased from 2.1 when he initially presented On physical examination patient does look extremely dry with decreased skin turgor Patient is taking Bumex 2 mg p.o. twice daily Plan: ? Reviewed all the records from [facility]-his baseline creatinine is between 2-2.2. Echocardiogram 30%. Spoke to primary team ? Echocardiogram showed ejection fraction 25% with significant systolic dysfunction. ? CT chest without contrast- showed severe pulmonary fibrosis, bronchiectasis- no CHF ? Recommended to discharge him on Lasix ? Bilateral renal ultrasound showed CKD changes ? Follow-up with daily since renal function panel ? Avoid nephrotoxic medications ? Follow-up with [facility] records #Hyperbilirubinemia #Transaminitis #Elevated troponins likely 2/2 #NSTEMI type ll #Normocytic Anemia #History of A-fib #History of CHF #Primary hypertension #Ajl-akavyey-podwhlbke type 2 diabetes #Hypothyroidism #History of L4 fracture s/p repair surgery #Cholelithiasis ?Managed by primary team Quality - progress note Quality Measures Quality Measures: VTE prophylaxis Reason for Continued Stay Reason for Continued Stay: further monitoring
--- NOTE | 2024-12-26 10:28 | PC.SS ---
Bedside nurse to confirm when patient will be scheduled for another session of dialysis. Bedside nurse to contact nephrology to confirm if patient will require dialysis on an outpatient basis.
--- NOTE | 2024-12-26 11:01 | PC.SS ---
COLLISION MECHANIC informed from nursing staff that the patient will not require outpatient dialysis per Dr. Scott.
--- NOTE | 2024-12-26 11:09 | PC.SS ---
SNF authorization has been obtained. Transport to be scheduled for patient's return to [place].
--- NOTE | 2024-12-26 12:09 | PC.SS ---
PROVIDER CONTRACTING CONSULTANT scheduled transport time electronically. Requested 03:30 pickup. Preferred vendor [facility]. Pending response.
--- NOTE | 2024-12-26 12:25 | PC.SS ---
Ambulance transport scheduled for 03:30 pm. [facility] to provide transportation. Transport scheduled for 03:30 pm. Reference #[id number]. EXERCISE SPECIALIST updated SNF, bedside nurse and patient.
--- NOTE | 2024-12-26 12:35 | PC.SS ---
LIP CUTTER contacted amy's son, Keren Conley; to provide update that patient will be discharge back to [facility] today. Patient to be transported by [facility] at 03:30 pm today.
--- NOTE | 2024-12-26 13:37 | PC.SS ---
REINFORCING STEEL PLACER informed by bedside nurse that [facility] transport showed up early to transport patient to SNF. [facility] staff informed that transport scheduled for 03:30 pm. [facility] to return at 03:30 pm today.
--- NOTE | 2024-12-26 16:50 | PC.SS ---
Rounding Note: Patient to d/c to SNF today.
--- NOTE | 2024-12-26 18:23 | ESDS_ITS ---
<Statement entered by Dedra Suarez MD - 12/29/24 08:14> I reviewed above note and agree with findings and plans. I have also personally examined the patient with medicine team and went over assessment and plan with medical team including manager intern and resident physician. Planned Discharge Date 12/26/24 DS: Providers Provider Date of admission: 12/22/24 14:23 Primary care physician: Physician No Primary/Family Admitting Provider: Dedra Suarez MD Attending Provider on Admission: Dedra Suarez MD Consults: 12/23/24 00:47 Health Equity Referral - Knowledge Deficit Routine Comment: Positive screening for knowledge deficit needs. 12/23/24 08:44 Consult to Nephrology Routine Comment: Consulting Provider: Jose Scott 12/23/24 10:52 Consult to General Surgery Routine Comment: Acute Cholecytitis Consulting Provider: Arlene Mckeon 12/25/24 07:00 Referral Physical Therapy Routine Comment: Physician Instructions: Attending Provider on DC: Bruce Giraldo MD Discharging Provider: Bruce Giraldo MD DS: Diagnosis Problem List Completed Was Problem List Reviewed/Reconciled?: Yes Hospital Course Hospital Course Hospital course: Mr. Conley is An 84-year-old male with a past medical history significant for congestive heart failure (CHF), atrial fibrillation (A-fib), hypertension, type 2 diabetes mellitus, hypothyroidism, and a recent L4 vertebral fracture S/p surgical repair at [facility] presented to [facility] ED from a rehabilitation center with initial concern of facial weakness. CT head was n egative for acute CVA and further history of revealed this weakness is related to his dentures and further shellie imaging was not required. While in the emergency department patient was found to have acute kidney injury. On admission Cr 2.7, BUN 103, eGFR 22. Suspect patient has underlying Renal US showed underlying CKD changes, On day of discharge Cr 2.5 and BUN 92. Patient will follow-up with neprhology Dr. Scott in 1-2 weeks for underlying kidney disease. Patient also noted to have elevated troponins which peaked at 0.157 and no significant EKG changes indicative of ischemia. Patient has underlying history of CHF and paroxysmal a-fib. 12/23/24 echocardiogram showed global LV systolic dysfunction. Grade III diastolic dysfunction. EF 25%. Moderate MR, Moderate AI, Moderate TR. Patient was started on GDMT with BB & lasix. Deferred SHABANA/ARB with kidney disease. Further GDMT can be titrated further outpatient with PCP. Follow-up with cardiology. Continue amiodarone and eliquis for atrial fi brillation. Patient likely has underlying cirrhosis given changes seen on CT. Follow-up with gastroenterology. Imaging also revealed Aneurysmal dilatation ascending thoracic aorta AP dimension 4.7cm and will need to follow-up with vascular for further management. Severe pulmonary fibrosis and 22mm pulmonary nodule left upper lobe and recommend outpatient referral to pulmonology. Abdominal US revealed possible acute cholecystitis although patient had no abdominal symptoms to report and patient was deemed high risk via general surgery. Follow-up with general surgery outpatient as desired. Continue home levothyroxine. TSH 18.49 & FT4 1.25. Repeat thyroid studies in 4-6 weeks as results were likely altered by acute illness. Continue home glipizide for well controlled DMII. 12/23/24 A1C 5.9%. Patient is medically cleared for discharge 12/26/2024 back to SNF. Discharge Recommendations -Follow up outpatient with primary care within 2 weeks -Follow up with your fuel oil clerk Dr. Albert within 2 weeks to discuss recent hospitalization and starting GDMT based on your lab findings and hospitalization work up -Repeat renal panel within 1 week and follow up outpatient with guitar teacher Dr. Scott within 2 weeks -You have been started on lasix once daily and your bumex is discontinued - If your symptoms return or worsen please return to the ED promptly Hospitalization Diagnosis #FUNMILAYO vs Acute on CKD stage IIIb #Elevated BUN 2/2 #ATN, likely #2/2 Dehydration - resolved #Hyperbilirubinemia #Transaminitis #Hx. of cirrhosis #ascites #Elevated troponins likely 2/2 #NSTEMI type ll # Chronic normocytic Anemia #History of A-fib #History of CHF #Primary hypertension #Inz-zhmadpe-dmbgukvlv type 2 diabetes #Ascending thoracic aortic aneurysm, 4.7cm #Pulmonary nodule #Severe pulmonary fibrosis #Bronchiectasis right upper lobe #COPD #History of L4 fracture s/p repair surgery #Cholelithiasis #suspicious for Acute Cholecytitis #Hypothyroidism Assessment and plan discussed with my attending physician Dr. Erick Giraldo (PGY-1)- Internal medicine resident Time Spent with Patient Time attestation: Total time spent providing and/or coordinating discharge services: Time spent: Greater than 30 minutes Exam Vital Signs Temp Pulse Resp BP Pulse Ox O2 Del Method O2 Flow Rate 97.4 F 63 17 130/68 93 L Room Air 1 12/26/24 12:00 12/26/24 12:00 12/26/24 12:00 12/26/24 12:00 12/26/24 12:00 12/26/24 12:00 12/25/24 04:00 Narrative Exam GENERAL: A&Ox3 . Awake, Not in acute distress NEURO: no focal neurological deficits noted HEENT: Atraumatic, Normocephalic. mucous membranes moist. Eyes open, symmetrical, & clear HEART: Normal Heart Sounds LUNGS: Clear to auscultation with no wheezing or crackles. ABDOMEN: soft, non-distended, non-tender, bowel sounds heard, no guarding or rebound tenderness SKIN: No Rash or ecchymoses EXTREMITIES: No edema, tenderness, able to move all 4 extremities, pedal pulses palpated Discharge Plan Plan Patient Disposition[facility] Patient condition on transfer: Stable Care Plan Goals: -Follow up outpatient with primary care within 2 weeks -Follow up with your fuel oil clerk Dr. Albert within 2 weeks to discuss recent hospitalization and starting GDMT based on your lab findings and hospitalization work up -Repeat renal panel within 1 week and follow up outpatient with guitar teacher Dr. Scott within 2 weeks -You have been started on lasix once daily and your bumex is discontinued - If your symptoms return or worsen please return to the ED promptly Prescriptions/Referrals Prescriptions/Med Rec: New furosemide 20 mg Tablet 20 mg PO QAM 30 Days Qty: 30 0RF Continued amiodarone 200 mg tablet 200 mg PO QDAY Rx Instructions: hold if HR <60 levothyroxine 75 mcg tablet 75 mcg PO QDAY lidocaine 5 % adhesive patch,medicated 1 patch TOPICAL Q12HR PRN (Reason: moderate pain (scale score 5-6)) metoprolol succinate 25 mg tablet extended release 24 hr 25 mg PO QDAY Rx Instructions: hold sbp<100 or dbp<60 or hr <60 glipizide 5 mg tablet 5 mg PO QDAY Januvia 25 mg tablet 25 mg PO QDAY Eliquis 2.5 mg tablet 2.5 mg PO BID Discontinued bumetanide 2 mg tablet 2 mg PO BID Rx Instructions: Hold id sbp<100 or of dbp<60 Referrals: No Primary/Family,Physician [Primary Care Provider] - Patient/Caregiver Discharge Instructions Education Materials: Dehydration, Discharge Instructions for Stroke, Fall Prevention Assessing Risk Print Language: Chinese Stand Alone Forms: Perlita Award Info., Patient Portal Info Letter Discharge Order Discharge Orders: Discharge (Routine); Ordered 12/26/24 Ordered By: Bruce Giraldo Quality Discharge Quality Measures VTE prophylaxis
== END 2024-12-26 15:27 | disposition skilled nursing facility (03) | DRG 469 ==
LOC: SERX 12:28 → SERHOLD 14:35 → S3NX 23:39 → S2NX 12-25 05:50
PROVIDERS: Student in an Organized Health Care Education/Training Program; Admitting Provider Internal Medicine; Emergency Provider Emergency Medicine; Visit Provider Internal Medicine
DX: N17.0 Acute kidney failure with tubular necrosis (principal); E86.0 Dehydration; E11.22 Type 2 diabetes mellitus with diabetic chronic kidney disease; I13.0 Hypertensive heart and chronic kidney disease with heart failure and stage 1 through stage 4 chronic kidney disease, or unspecified chronic kidney disease; I21.A1 Myocardial infarction type 2; I48.0 Paroxysmal atrial fibrillation; I50.22 Chronic systolic (congestive) heart failure; E03.9 Hypothyroidism, unspecified; K80.00 Calculus of gallbladder with acute cholecystitis without obstruction; I71.21 Aneurysm of the ascending aorta, without rupture; J47.9 Bronchiectasis, uncomplicated; J84.10 Pulmonary fibrosis, unspecified; E78.5 Hyperlipidemia, unspecified; K74.60 Unspecified cirrhosis of liver; R18.8 Other ascites; M81.0 Age-related osteoporosis without current pathological fracture; N13.30 Unspecified hydronephrosis; N18.32 Chronic kidney disease, stage 3b; D63.1 Anemia in chronic kidney disease; N27.1 Small kidney, bilateral; R91.1 Solitary pulmonary nodule; I08.1 Rheumatic disorders of both mitral and tricuspid valves; S32.041D Stable burst fracture of fourth lumbar vertebra, subsequent encounter for fracture with routine healing; Z66 Do not resuscitate; Z86.74 Personal history of sudden cardiac arrest; Z98.890 Other specified postprocedural states; Z95.0 Presence of cardiac pacemaker; Z79.84 Long term (current) use of oral hypoglycemic drugs; Z79.899 Other long term (current) drug therapy; Z79.890 Hormone replacement therapy; Z79.01 Long term (current) use of anticoagulants; W19.XXXD Unspecified fall, subsequent encounter
CPT/HCPCS: 36415; 70450; 71045; 71250; 72100; 72125; 76705; 76770; 80053; 80061; 80074; 81001; 83036; 83690; 83735; 83880; 84100; 84300; 84439; 84443; 84484; 85025; 85610; 85730; 86331; 86635; 87081; 93005; 93225; 93306; 96360; 96361; 97162; 99285; J1643; J1815; J1938; J7030; J7050; A9270